=== PATIENT | male | born 1935 | race Caucasian/White ===

== ENCOUNTER 2022-05-31 21:20 | Inpatient (IN) ==
[2022-05-31] MEDS ORDERED: ASPIRIN CHEW 324 MG PO STA (21:27)
[2022-05-31] MEDS ORDERED: diphenhydrAMINE 50 MG/ML VIAL IV STA (21:34)
[2022-05-31] MEDS ORDERED: methylPREDNISolone 125 MG/2 ML VIAL IV STA (21:34)
[2022-05-31 21:57] LABS: Eosinophils # (auto) 0.11 K/uL (0-0.5); Eosinophils % (auto) 0.7 %; Hematocrit (blood only) 26.5 % (42-52); Hemoglobin 8.5 g/dL (14.0-18.0); Immature Granulocytes # (auto) 0.06 K/uL (0.00-0.02); Immature Granulocytes % (auto) 0.4 %; Lymphocytes # (auto) 0.94 K/uL (1.2-3.4); Lymphocytes % (auto) 6.2 %; Mean Corpuscular Hemoglobin 30.9 pg (25-34); Mean Corpuscular Hgb Conc 32.1 g/dL (32-36); Mean Corpuscular Volume 96.4 fL (80-100); Mean Platelet Volume 8.6 fL (7.4-10.4); Monocytes # (auto) 0.29 K/uL (0.11-0.59); Monocytes % (auto) 1.9 %; Neutrophils % (auto) 90.8 %; Nucleated RBC # (auto) 0.04 K/uL (0-0); Nucleated RBC % (auto) 0.3 %; Platelet Count 380 K/uL (130-400); RDW Coefficient of Variation 16.9 % (11.5-14.5); RDW Standard Deviation 56.5 fL (36.4-46.3); Red Blood Count 2.75 M/uL (4.7-6.1)
[2022-05-31 21:59] LABS: iSTAT Creatinine 1.5 mg/dl (0.6-1.3); iSTAT Hemoglobin 8.5 g/dl (14.0-18.0); iSTAT Ionized Calcium 1.05 mmol/l (1.12-1.32); iSTAT Potassium 4.4 mmol/L (3.3-5.0)
[2022-05-31 22:10] LABS: INR 1.1 (0.9-1.1); Partial Thromboplastin Time 27.7 Seconds (21.0-31.0); Prothrombin Time 11.4 Seconds (9.0-12.0)
[2022-05-31 22:24] LABS: Anion Gap 8 (3-11); BUN Creatinine Ratio 12.2 (10-20); Blood Urea Nitrogen 17 mg/dl (6-23); Carbon Dioxide 27 mmol/L (21-32); Chloride 101 mmol/L (98-107); Est GFR (African American) 53.6 ml/min; Est GFR (Non-African American) 46.2 ml/min; Glucose 131 mg/dl (70-99(Fasting)); Lipase 31 U/L (11-82); Potassium 4.3 mmol/L (3.5-5.1); Sodium 136 mmol/L (136-145)
[2022-05-31] MEDS ORDERED: OPTIRAY 320 125ml IV ONE (22:49)
[2022-05-31 23:02] LABS: Troponin I High Sensitivity 120.2 pg/ml (0-20)
[2022-05-31 23:22] LABS: Influenza A virus by PCR Negative (Neg); Influenza B virus by PCR Negative (Neg); RSV by PCR Negative (Neg)
[2022-05-31 23:24] LABS: SARS CoV2 RNA(COVID-19) InHosp POSITIVE (Negative)
[2022-05-31] MEDS ORDERED: SODIUM CHLORIDE 0.9% 500 ML IV SCH (23:45)
--- NOTE | 2022-05-31 23:53 | Emergency Department Note ---
History of Present Illness General Chief complaint: Chest Pain Stated complaint: open hrt surg fri, swelling and sob, some pain Time Seen by Provider: 05/31/22 21:27 Source: patient and family ( and daughter at bedside) History of Present Illness Provider complaint: Chest pain Onset (ago): day(s) 2 Location: chest Radiation: non-radiation Severity: mild Pain Consistency: + intermittent Maximum Pain Intensity: 4 Current Pain Intensity: 4 Quality: + aching Relieved By: + none Exacerbated By: + none Associated symptoms: + chest pain, + cough, + fever/chills, + malaise and + shortness of breath; no headaches or no nausea/vomiting 86-year-old male presents emergency department with family for chest pain. Family reports that the patient has been reporting some chest pain over the left side of his chest. He is also reporting some cough and shortness of breath. Patient's family reports that he has been increasingly fatigued. He reports muscle aches. Patient did have open heart surgery done on May [address] [facility]. Home Medications Medication Instructions Recorded Confirmed Type acetaminophen 325 mg tablet 650 mg PO Q4H PRN 05/31/22 05/31/22 History (Tylenol) amiodarone 200 mg tablet 200 mg PO DIRECTED 05/31/22 05/31/22 History aspirin 81 mg tablet,delayed 81 mg PO DAILY 05/31/22 05/31/22 History release atorvastatin 40 mg tablet 40 mg PO HS 05/31/22 05/31/22 History ferrous sulfate 325 mg (65 mg 325 mg PO DAILY 05/31/22 05/31/22 History iron) tablet furosemide 40 mg tablet (Lasix) 40 mg PO DAILY 05/31/22 05/31/22 History metoprolol succinate 50 mg 50 mg PO DAILY 05/31/22 05/31/22 History tablet,extended release 24 hr pantoprazole 40 mg tablet,delayed 40 mg PO DAILY 05/31/22 05/31/22 History release polyethylene glycol 3350 17 17 g PO DAILY PRN 05/31/22 05/31/22 History gram/dose oral powder (Miralax) potassium chloride 10 mEq 10 meq PO DAILY 05/31/22 05/31/22 History capsule,extended release sennosides 8.6 mg tablet (senna) 8.6 mg PO DAILY PRN 05/31/22 05/31/22 History terazosin 2 mg capsule 2 mg PO HS 05/31/22 05/31/22 History Allergies Allergy/AdvReac Type Severity Reaction Status Date / Time Iodinated Contrast Media Allergy Severe SHORT OF Verified 05/31/22 22:05 BREATH, FELT LIKE "ON FIRE". Past Med/Surg History Medical History Aortic stenosis CAD (coronary artery disease) HLD (hyperlipidemia) HTN (hypertension) No pertinent family history Surgical History Aortic valve replaced Hx of CABG Social History Smoking Status: Former smoker Tobacco Type: Cigarettes Feels Safe at Home: Yes Review of Systems A total of 10 systems reviewed and were otherwise negative Physical Exam Vital Signs Vital Signs - 24 hr 05/31/22 21:21 05/31/22 21:27 05/31/22 23:01 Temperature 37.7 C H Temperature Source Temporal Artery Scan Pulse Rate 82 Pulse Rate [Apical] 92 H Respiratory Rate 18 17 Respiratory Effort / Characteristics Non-Labored Spontaneous Labored Non-Labored Respiratory Depth Normal Normal Normal Respiratory Pattern Regular Blood Pressure 129/71 Blood Pressure [Left Arm] 134/66 Blood Pressure Mean 90 Blood Pressure Mean [Left Arm] 88 Blood Pressure Position Sitting Blood Pressure Position [Left Arm] Lying Pulse Oximetry 95 97 94 Oxygen Delivery Method Room Air Room Air Room Air Sepsis Recent Fever Within 48 Hours Yes Sepsis New/Unexplained Change in Mental Status N/A Sepsis Action Taken by Nursing No Action Required 06/01/22 00:00 Temperature Temperature Source Pulse Rate Pulse Rate [Apical] 73 Respiratory Rate 16 Respiratory Effort / Characteristics Non-Labored Respiratory Depth Normal Respiratory Pattern Regular Blood Pressure Blood Pressure [Left Arm] 116/67 Blood Pressure Mean Blood Pressure Mean [Left Arm] 83 Blood Pressure Position Blood Pressure Position [Left Arm] Lying Pulse Oximetry 96 Oxygen Delivery Method Room Air Sepsis Recent Fever Within 48 Hours Sepsis New/Unexplained Change in Mental Status Sepsis Action Taken by Nursing Physical Exam HENT: Exam performed. - Head: Normocephalic and atraumatic. - Right Ear: External ear normal. No mastoid tenderness. - Left Ear: External ear normal. No mastoid tenderness. - Mouth/Throat: The oropharynx is clear and moist. No trismus in the jaw. No dental abscesses or uvula swelling. No oropharyngeal exudate or tonsillar abscesses. EYES: Conjunctivae and EOM are normal. Pupils are equal, round, and reactive to light. Right eye exhibits no discharge. Left eye exhibits no discharge. No scl eral icterus. NECK: Normal range of motion. Neck supple. No JVD present. No spinous process tenderness present. No carotid bruit present. No rigidity. No tracheal deviation and normal range of motion present. No Brudzinski's sign and no Kernig's sign noted. CV: Normal rate, regular rhythm, normal heart sounds and intact distal pulses. There is no peripheral edema. Palpable radial pulses bue. PULM/CHEST: Rhonchi bilaterally. - Chest Wall: He exhibits no tenderness. Surgical incisions are clean and dry no surrounding erythema or discharge. ABD: The abdomen is soft. MUSC/SKEL: Normal range of motion. There is no peripheral edema, tenderness or deformity. NEURO: Motor and sensation grossly intact Course Course 2126: The patient was evaluated in room C2. A complete history and physical exam was performed Cardiac monitoring: An order was placed for continuous cardiac monitoring. The monitor shows a rate of 90 with sinus rhythm 0058: Vital signs stable. Labs show leukocytosis of 15.2. High-sensitivity tro ponin 120.2. CT angio of the chest is negative for PE or infiltrate. Patient is positive for COVID-19. Discussed the case with [facility] and CT surgery Dr. Miller [phone] she states that the patient's is too far out from his surgery for an elevated troponin at this. She states that the patient had a CABG with 1 diagonal branch and the main reason for the CT surgery was for his valve replacement. She states there is no need for transfer at this time and she recommends that the patient be admitted to this facility have an echo done in the morning and be evaluated by cardiology. Administered Medications Discontinued Medications Aspirin (Aspirin Chew 324 Mg) 324 mg PO NOW STA Stop: 05/31/22 21:28 Last Admin: 05/31/22 21:52 Dose: 324 mg Documented by: [id number] Diphenhydramine HCl (Diphenhydramine 50 Mg/Ml Vial) 25 mg IV NOW STA Stop: 05/31/22 21:35 Last Admin: 05/31/22 21:53 Dose: 25 mg Documented by: [id number] Sodium Chloride (Nss) 500 mls @ 125 mls/hr IV .Q4H IS[place] Stop: 06/30/22 23:44 Last Admin: 06/01/22 00:42 Dose: 125 mls/hr Documented by: [id number] Ioversol (Optiray 320 125ml) 116 ml IV ONCE ONE Stop: 05/31/22 22:50 Last Admin: 05/31/22 22:50 Dose: 116 ml Documented by: [id number] Methylprednisolone (Methylprednisolone 125 Mg/2 Ml Vial) 125 mg IV NOW STA Stop: 05/31/22 21:35 Last Admin: 05/31/22 21:53 Dose: 125 mg Documented by: [id number] Medical Decision Making Laboratory Data Result diagrams: 05/31/22 21:41 05/31/22 21:41 Lab Results 05/31/22 05/31/22 05/31/22 Range/Units 21:41 21:41 21:41 WBC 15.20 H (4.8-10.8) K/uL RBC 2.75 L (4.7-6.1) M/uL Hgb 8.5 L (14.0-18.0) g/dL POC Hgb (14.0-18.0) g/dl Hct 26.5 L (42-52) % POC Hct (42-52) % MCV 96.4 (80-100) fL MCH 30.9 (25-34) pg MCHC 32.1 (32-36) g/dL RDW Std Deviation 56.5 H (36.4-46.3) fL RDW Coeff of Michael 16.9 H (11.5-14.5) % Plt Count 380 (130-400) K/uL MPV 8.6 (7.4-10.4) fL Immature Gran % (Auto) 0.4 % Neut % (Auto) 90.8 % Lymph % (Auto) 6.2 % Burke % (Auto) 1.9 % Eos % (Auto) 0.7 % Baso % (Auto) 0.0 % Neut # (Auto) 13.80 H (1.4-6.5) K/uL Lymph # (Auto) 0.94 L (1.2-3.4) K/uL Burke # (Auto) 0.29 (0.11-0.59) K/uL Eos # (Auto) 0.11 (0-0.5) K/uL Baso # (Auto) 0.00 (0-0.2) K/uL Immature Gran # (Auto) 0.06 H (0.00-0.02) K/uL Absolute Nucleated RBC 0.04 H (0-0) K/uL Nucleated RBC % (auto) 0.3 % PT 11.4 (9.0-12.0) Seconds INR 1.1 (0.9-1.1) APTT 27.7 (21.0-31.0) Seconds PTT Ratio 1.0 POC Sodium (135-144) mmol/L Sodium 136 (136-145) mmol/L POC Potassium (3.3-5.0) mmol/L Potassium 4.3 (3.5-5.1) mmol/L POC Chloride (101-112) mmol/L Chloride 101 (98-107) mmol/L Carbon Dioxide 27 (21-32) mmol/L POC Total CO2 (24-31) mmol/L Anion Gap 8 (3-11) POC Anion Gap (16-25) mmol/L POC BUN (7-18) mg/dl BUN 17 (6-23) mg/dl Creatinine 1.39 (0.6-1.4) mg/dl POC Creatinine (0.6-1.3) mg/dl Est Cr Clr Drug Dosing Not Reportable Est GFR ( Amer) 53.6 ml/min Est GFR (Non-Af Amer) 46.2 ml/min BUN/Creatinine Ratio 12.2 (10-20) Glucose 131 H (70-99(Fasting)) mg/dl POC Glucose (other) (70-99) mg/dl Lactate (0.4-2.0) mmol/L Calcium 8.0 L (8.5-10.1) mg/dl POC Ioniz Calcium Carmen (1.12-1.32) mmol/l Troponin I High Sens 120.2 H* (0-20) pg/ml Lipase 31 (11-82) U/L SARS-CoV-2 (PCR) (Negative) Influenza Type A (PCR) (Neg) Influenza Type B (PCR) (Neg) RSV (RT-PCR) (Neg) 05/31/22 05/31/22 05/31/22 Range/Units 21:46 22:32 23:00 WBC (4.8-10.8) K/uL RBC (4.7-6.1) M/uL Hgb (14.0-18.0) g/dL POC Hgb 8.5 L (14.0-18.0) g/dl Hct (42-52) % POC Hct 25 L (42-52) % MCV (80-100) fL MCH (25-34) pg MCHC (32-36) g/dL RDW Std Deviation (36.4-46.3) fL RDW Coeff of Michael (11.5-14.5) % Plt Count (130-400) K/uL MPV (7.4-10.4) fL Immature Gran % (Auto) % Neut % (Auto) % Lymph % (Auto) % Burke % (Auto) % Eos % (Auto) % Baso % (Auto) % Neut # (Auto) (1.4-6.5) K/uL Lymph # (Auto) (1.2-3.4) K/uL Burke # (Auto) (0.11-0.59) K/uL Eos # (Auto) (0-0.5) K/uL Baso # (Auto) (0-0.2) K/uL Immature Gran # (Auto) (0.00-0.02) K/uL Absolute Nucleated RBC (0-0) K/uL Nucleated RBC % (auto) % PT (9.0-12.0) Seconds INR (0.9-1.1) APTT (21.0-31.0) Seconds PTT Ratio POC Sodium 135 (135-144) mmol/L Sodium (136-145) mmol/L POC Potassium 4.4 (3.3-5.0) mmol/L Potassium (3.5-5.1) mmol/L POC Chloride 99 L (101-112) mmol/L Chloride (98-107) mmol/L Carbon Dioxide (21-32) mmol/L POC Total CO2 25 (24-31) mmol/L Anion Gap (3-11) POC Anion Gap 16.0 (16-25) mmol/L POC BUN 15 (7-18) mg/dl BUN (6-23) mg/dl Creatinine (0.6-1.4) mg/dl POC Creatinine 1.5 H (0.6-1.3) mg/dl Est Cr Clr Drug Dosing Est GFR ( Amer) ml/min Est GFR (Non-Af Amer) ml/min BUN/Creatinine Ratio (10-20) Glucose (70-99(Fasting)) mg/dl POC Glucose (other) 133 H (70-99) mg/dl Lactate 0.7 (0.4-2.0) mmol/L Calcium (8.5-10.1) mg/dl POC Ioniz Calcium Carmen 1.05 L (1.12-1.32) mmol/l Troponin I High Sens (0-20) pg/ml Lipase (11-82) U/L SARS-CoV-2 (PCR) POSITIVE A* (Negative) Influenza Type A (PCR) Negative (Neg) Influenza Type B (PCR) Negative (Neg) RSV (RT-PCR) Negative (Neg) Imaging Data Radiologist's Impression: PreliminaryFindingsOnly See Final Report For Complete Findings CTACHEST: No evidence of pulmonaryemboli. Trace bilateral pleural effusions. Mild areas of subsegmental atelectasis in the lung bases. Moderatelylarge hiatus hernia. Radiologist: Matias Acevedo MD Study ready at 23:09 and initial results transmitted at 23:46 ECG Data Indication: + chest pain Rate (beats per minute): 83 Rhythm: + normal sinus ECG Intervals/blocks: + First degree AV block, + Normal QRS and + Normal QT-c ECG ST segments: + Normal ST segments and + T-wave inversions (I and aVL) Comparison ECG Date: no prior available MDM Narrative Vital signs stable. Labs show leukocytosis of 15.2. High-sensitivity troponin 120.2. CT angio of the chest is negative for PE or infiltrate. Patient is positive for COVID-19. Discussed the case with [facility] and CT surgery Dr. Miller [phone] she states that the patient's is too far out from his surgery for an elevated troponin at this. She states that the patient had a CABG with 1 diagonal branch and the main reason for the CT surgery was for his valve replacement. She states there is no need for transfer at this time and she recommends that the patient be admitted to this facility have an echo done in the morning and be evaluated by cardiology. Impression & Plan COVID-19, Elevated troponin Discharge Plan Visit Data Chief Complaint: Chest Pain Stated Complaint: open hrt surg fri, swelling and sob, some pain ED Provider: Indra Harvey Discharge Problem: COVID-19, Elevated troponin Patient Disposition: Admitted As Inpatient Forms Stand Alone Forms: My [facility] Prescriptions Prescriptions: No Action furosemide [Lasix] 40 mg Tablet 40 mg PO DAILY RF: 0 atorvastatin 40 mg Tablet 40 mg PO HS RF: 0 sennosides [senna] 8.6 mg Tablet 8.6 mg PO DAILY PRN (Reason: Constipation) RF: 0 potassium chloride 10 mEq Capsule, Extended Release 10 meq PO DAILY RF: 0 acetaminophen [Tylenol] 325 mg Tablet 650 mg PO Q4H PRN (Reason: Pain) RF: 0 amiodarone 200 mg Tablet 200 mg PO DIRECTED RF: 0 metoprolol succinate 50 mg Tablet Extended Release 24 Hr 50 mg PO DAILY RF: 0 aspirin 81 mg Tablet,Delayed Release (Dr/Ec) 81 mg PO DAILY RF: 0 terazosin 2 mg Capsule 2 mg PO HS RF: 0 pantoprazole 40 mg Tablet,Delayed Release (Dr/Ec) 40 mg PO DAILY RF: 0 ferrous sulfate 325 mg (65 mg iron) Tablet 325 mg PO DAILY RF: 0 polyethylene glycol 3350 [Miralax] 17 gram/dose Powder 17 g PO DAILY PRN (Reason: Constipation) RF: 0 Referrals Referrals: Jake Joseph [Primary Care Provider] -
--- NOTE | 2022-06-01 01:10 | History & Physical Report ---
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 Miller for patient's surgeon, Dr Stoddard, contact #[phone]) recommendation per ER provider.. Cardiology consult Re: CHF Supportive measures for patient's COVID-19 illness. IV PPI for UGIB Appropriate to hold aspirin for now until hemoglobin stable Anemia work-up, transfuse PRBC if hemoglobin less than 8 and or for symptomatic anemia GI consult Re: UGI B Retrieve records from [facility] and patient's PCP Check hemoglobin A1c DVT prophylaxis. SCDs Re: GI bleed Full code Text document was generated using [employer] voice recognition software. It may contain grammatical or spelling errors. Kindly contact undersigned for clarification of any documentation item in question. History of Present Illness Chief Complaint: Chest pain, shortness of breath Primary Care Provider: Dr. Tyrell Munroe of [facility] History obtained from patient and records. Medical history significant for CHF, severe status post TAVR (03/2021), PAF currently off Coumadin, prosthetic valve dysfunction status post recent TAVR explant surgery (04/2022, [facility]), CAD status post CABG, hypertension, hyperlipidemia, chronic anemia (unknown baseline), GERD, past tobacco abuse. 2 weeks ago, patient underwent elective TAVR explant surgery and CABG for paravalvular leak following TAVR surgery for severe (2020) at [place], [place]. Patient discharged home after 1 week. Noise retention, weight gain, bilateral leg swelling the last week as per patient. Chronic dark stools without abdominal pain. Few days ago, patient noted cough symptoms productive of clear sputum, achiness, increased fatigue and left-sided chest pain. Patient not sure about recent COVID-19 contacts given recent confinement. Has completed COVID-19 vaccination. Patient compliant with home medications. Amiodarone recently added to patient's home regimen. Patient currently off Coumadin for reasons unclear to patient. Patient brought to ER for evaluation. Medical History as above Surgical History : TAVR x2, CABG, knee surgeries Family History : No heart disease, no DM Personal/Social history : Past tobacco abuse, no EtOH intake, retired machinist wood Allergies Allergy/AdvReac Type Severity Reaction Status Date / Time Iodinated Contrast Media Allergy Severe SHORT OF Verified 05/31/22 22:05 BREATH, FELT LIKE "ON FIRE". Home Medications Medication Instructions Recorded Confirmed Type acetaminophen 325 mg tablet 650 mg PO Q4H PRN 05/31/22 05/31/22 History (Tylenol) amiodarone 200 mg tablet 200 mg PO DIRECTED 05/31/22 05/31/22 History aspirin 81 mg tablet,delayed 81 mg PO DAILY 05/31/22 05/31/22 History release atorvastatin 40 mg tablet 40 mg PO HS 05/31/22 05/31/22 History ferrous sulfate 325 mg (65 mg 325 mg PO DAILY 05/31/22 05/31/22 History iron) tablet furosemide 40 mg tablet (Lasix) 40 mg PO DAILY 05/31/22 05/31/22 History metoprolol succinate 50 mg 50 mg PO DAILY 05/31/22 05/31/22 History tablet,extended release 24 hr pantoprazole 40 mg tablet,delayed 40 mg PO DAILY 05/31/22 05/31/22 History release polyethylene glycol 3350 17 17 g PO DAILY PRN 05/31/22 05/31/22 History gram/dose oral powder (Miralax) potassium chloride 10 mEq 10 meq PO DAILY 05/31/22 05/31/22 History capsule,extended release sennosides 8.6 mg tablet (senna) 8.6 mg PO DAILY PRN 05/31/22 05/31/22 History terazosin 2 mg capsule 2 mg PO HS 05/31/22 05/31/22 History Past Med/Surg History Medical History Aortic stenosis CAD (coronary artery disease) HLD (hyperlipidemia) HTN (hypertension) No pertinent family history Surgical History Aortic valve replaced Hx of CABG Social History Smoking Status: Former smoker Tobacco Type: Cigarettes Hx Alcohol Use: Yes Hx Substance Use: No Preferred Language: Jamaican 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 Beliefs That Will Affect Care: None Current Living Situation: Spouse Feels Safe at Home: Yes Safety Concerns: Feels Safe At This Time Review of Systems Review of Systems: As per HPI, all other systems reviewed and negative Physical Exam Physical Exam: GENERAL: Comfortable, pleasant, obese, no respiratory distress SKIN: Pallor,, warm HEENT: Pale palpebral conjunctivae, no ptosis, dry buccal mucosa NECK : Supple, short neck, no tenderness CHEST : coaptated sternal surgical incision, decreased breath sounds, occasional expiratory wheezes, minimal central chest wall tenderness HEART : RRR, systolic murmur over second right intercostal space and sternal border ABDOMEN: Some distention, nontender RECTAL : Intact sphincter, dark stool (FOBT positive ) EXTREMITIES : Minimal LE swelling, no LE tenderness, no other conspicuous deformities noted NEUROLOGIC : Coherent, no facial asymmetry, slightly hard of hearing, no other gross focality Results & Data Results & Data ([facility]) Vital Signs (Past 12 Hours) Vital Signs Temp Pulse Pulse Resp BP BP Pulse Ox 06/01/22 00:00 73 16 116/67 96 05/31/22 23:01 92 H 17 134/66 94 05/31/22 21:27 97 05/31/22 21:21 37.7 C H 82 18 129/71 95 Laboratory Results Laboratory Results WBC 15.20 K/uL (4.8-10.8) H 05/31/22 21:41 RBC 2.75 M/uL (4.7-6.1) L 05/31/22 21:41 Hgb 8.5 g/dL (14.0-18.0) L 05/31/22 21:41 POC Hgb 8.5 g/dl (14.0-18.0) L 05/31/22 21:46 Hct 26.5 % (42-52) L 05/31/22 21:41 POC Hct 25 % (42-52) L 05/31/22 21:46 MCV 96.4 fL (80-100) 05/31/22 21:41 MCH 30.9 pg (25-34) 05/31/22 21:41 MCHC 32.1 g/dL (32-36) 05/31/22 21:41 RDW Std Deviation 56.5 fL (36.4-46.3) H 05/31/22 21:41 RDW Coeff of Michael 16.9 % (11.5-14.5) H 05/31/22 21:41 Plt Count 380 K/uL (130-400) 05/31/22 21:41 MPV 8.6 fL (7.4-10.4) 05/31/22 21:41 Immature Gran % (Auto) 0.4 % 05/31/22 21:41 Neut % (Auto) 90.8 % 05/31/22 21:41 Lymph % (Auto) 6.2 % 05/31/22 21:41 Ness % (Auto) 1.9 % 05/31/22 21:41 Eos % (Auto) 0.7 % 05/31/22 21:41 Baso % (Auto) 0.0 % 05/31/22 21:41 Neut # (Auto) 13.80 K/uL (1.4-6.5) H 05/31/22 21:41 Lymph # (Auto) 0.94 K/uL (1.2-3.4) L 05/31/22 21:41 Ness # (Auto) 0.29 K/uL (0.11-0.59) 05/31/22 21:41 Eos # (Auto) 0.11 K/uL (0-0.5) 05/31/22 21:41 Baso # (Auto) 0.00 K/uL (0-0.2) 05/31/22 21:41 Immature Gran # (Auto) 0.06 K/uL (0.00-0.02) H 05/31/22 21:41 Absolute Nucleated RBC 0.04 K/uL (0-0) H 05/31/22 21:41 Nucleated RBC % (auto) 0.3 % 05/31/22 21:41 PT 11.4 Seconds (9.0-12.0) 05/31/22 21:41 INR 1.1 (0.9-1.1) 05/31/22 21:41 APTT 27.7 Seconds (21.0-31.0) 05/31/22 21:41 PTT Ratio 1.0 05/31/22 21:41 POC Sodium 135 mmol/L (135-144) 05/31/22 21:46 Sodium 136 mmol/L (136-145) 05/31/22 21:41 POC Potassium 4.4 mmol/L (3.3-5.0) 05/31/22 21:46 Potassium 4.3 mmol/L (3.5-5.1) 05/31/22 21:41 POC Chloride 99 mmol/L (101-112) L 05/31/22 21:46 Chloride 101 mmol/L (98-107) 05/31/22 21:41 Carbon Dioxide 27 mmol/L (21-32) 05/31/22 21:41 POC Total CO2 25 mmol/L (24-31) 05/31/22 21:46 Anion Gap 8 (3-11) 05/31/22 21:41 POC Anion Gap 16.0 mmol/L (16-25) 05/31/22 21:46 POC BUN 15 mg/dl (7-18) 05/31/22 21:46 BUN 17 mg/dl (6-23) 05/31/22 21:41 Creatinine 1.39 mg/dl (0.6-1.4) 05/31/22 21:41 POC Creatinine 1.5 mg/dl (0.6-1.3) H 05/31/22 21:46 Est Cr Clr Drug Dosing Not Reportable 05/31/22 21:41 Est GFR ( Amer) 53.6 ml/min 05/31/22 21:41 Est GFR (Non-Af Amer) 46.2 ml/min 05/31/22 21:41 BUN/Creatinine Ratio 12.2 (10-20) 05/31/22 21:41 Glucose 131 mg/dl (70-99(Fasting)) H 05/31/22 21:41 POC Glucose (other) 133 mg/dl (70-99) H 05/31/22 21:46 Lactate 0.7 mmol/L (0.4-2.0) 05/31/22 23:00 Calcium 8.0 mg/dl (8.5-10.1) L 05/31/22 21:41 POC Ioniz Calcium Carmen 1.05 mmol/l (1.12-1.32) L 05/31/22 21:46 Troponin I High Sens 120.2 pg/ml (0-20) H* 05/31/22 21:41 Lipase 31 U/L (11-82) 05/31/22 21:41 SARS-CoV-2 (PCR) POSITIVE (Negative) A* 05/31/22 22:32 Influenza Type A (PCR) Negative (Neg) 05/31/22 22:32 Influenza Type B (PCR) Negative (Neg) 05/31/22 22:32 RSV (RT-PCR) Negative (Neg) 05/31/22 22:[address] chest initial read: No evidence of pulmonaryemboli. Trace bilateral pleural effusions. Mild areas of subsegmental atelectasis in the lung bases. Moderatelylarge hiatus hernia. EKG as per my interpretation:Rate 85, NSR, LAD, LAFB, 1 AVB, T wave abnormalities lateral leads
[2022-06-01] MEDS ORDERED: SODIUM CHLORIDE 0.9% 500 ML IV ONE (01:11)
[2022-06-01 01:56] LABS: Magnesium 2.2 mg/dl (1.7-2.4)
[2022-06-01 02:14] LABS: Troponin I High Sensitivity 98.7 pg/ml (0-20)
[2022-06-01] MEDS ORDERED: PANTOprazole 80 MG in DEXTROSE 5% 100 ML IV ONE (02:15)
[2022-06-01] MEDS ORDERED: FUROSEMIDE INJ 20 MG/2 ML VIAL IV ONE ×2 (02:19)
[2022-06-01] MEDS ORDERED: LEVALBUTEROL TARTRATE 15 GM HFA.AER.AD INH STA (02:23)
[2022-06-01 02:47] LABS: Albumin Level 3.1 gm/dl (3.4-5.0)
[2022-06-01] MEDS ORDERED: ACETAMINOPHEN 325 MG TAB PO PRN (04:11)
[2022-06-01] MEDS ORDERED: LEVALBUTEROL TARTRATE 15 GM HFA.AER.AD INH PRN (04:11)
[2022-06-01] MEDS ORDERED: PROMETHAZINE HCL 12.5 MG in SODIUM CHLORIDE 0.9% 50 ML IV PRN (04:11)
[2022-06-01] MEDS ORDERED: traMADol HCL 50 MG TABLET PO PRN (04:11)
[2022-06-01] MEDS ORDERED: NITROGLYCERIN SL 0.4 MG/TAB TAB SL PRN (04:11)
[2022-06-01 06:41] LABS: Estimated Average Glucose 114 mg/dl; Hemoglobin A1C 5.6 % (4.5-5.6)
[2022-06-01] MEDS ORDERED: PANTOprazole 40 MG in DEXTROSE 5% 100 ML IV SCH (07:15)
[2022-06-01 07:39] LABS: Basophils # (auto) 0.01 K/uL (0-0.2); Basophils % (auto) 0.1 %; Hematocrit (blood only) 25.6 % (42-52); Hemoglobin 8.3 g/dL (14.0-18.0); Immature Granulocytes # (auto) 0.07 K/uL (0.00-0.02); Immature Granulocytes % (auto) 0.5 %; Lymphocytes # (auto) 0.37 K/uL (1.2-3.4); Lymphocytes % (auto) 2.9 %; Mean Corpuscular Hemoglobin 30.9 pg (25-34); Mean Corpuscular Hgb Conc 32.4 g/dL (32-36); Mean Corpuscular Volume 95.2 fL (80-100); Mean Platelet Volume 8.7 fL (7.4-10.4); Monocytes # (auto) 0.05 K/uL (0.11-0.59); Monocytes % (auto) 0.4 %; Neutrophils # (auto) 12.41 K/uL (1.4-6.5); Neutrophils % (auto) 96.1 %; Platelet Count 375 K/uL (130-400); RDW Coefficient of Variation 16.7 % (11.5-14.5); RDW Standard Deviation 56.1 fL (36.4-46.3); Red Blood Count 2.69 M/uL (4.7-6.1); White Blood Count 12.91 K/uL (4.8-10.8)
--- NOTE | 2022-06-01 07:39 | XRay Report ---
SINGLE VIEW CHEST CLINICAL HISTORY: Atypical chest pain. FINDINGS: An AP, portable, upright chest radiograph is obtained. No prior studies are available for c omparison at the time of dictation. The examination is degraded by portable technique and patient rot ation. The patient is status post midline sternotomy. The heart is enlarged noting atherosclerotic ca lcification of the thoracic aorta. There is mild pulmonary vascular congestion. There are small pleur al effusions with bibasilar scarring/atelectasis. No pneumothorax is seen. The skeletal structures ar e osteopenic. The bony thorax is grossly intact. Surgical clips project over the right upper chest wa ll. IMPRESSION: 1. Cardiomegaly with mild pulmonary vascular congestion. 2. Small pleural effusions with bibasilar scarring/atelectasis. ACT 112: Negative or not required by law. Electronically signed by: Giovani Jerez M.D. 06/01/2022 7:38 AM
[2022-06-01 07:45] LABS: Reticulocyte % 5.3 % (0.5-2.0); Reticulocytes # 0.14 10^6/uL (0.02-0.10)
--- NOTE | 2022-06-01 08:14 | CT Scan Report ---
CT angio chest PE protocol CLINICAL HISTORY: Chest Pain, eval for PE TECHNIQUE: Multidetector row helical CT of the chest was performed with angiographic protocol. Riley l and sagittal reformations were obtained. Coronal and sagittal MIPS were obtained from the axial nura a set and were submitted for review. Automated dose lowering techniques and/or adjustment according to patient size were utilized for this exam. CT DOSE: 674.78 mGy.cm Comparison: None available at the time of this dictation. FINDINGS: Lungs and pleura: Atelectasis versus scarring is seen in the dependent portions of the lungs. Trace b ilateral pleural effusions are noted. Bronchial wall thickening is noted. Heart and pericardium: Heart size is normal. No pericardial effusion. Vessels: No evidence of pulmonary embolism. Mediastinum and rick: Stranding and a tiny focus of anterior mediastinal gas are seen. Chest wall and lower neck: Unremarkable. Abdomen: A moderate hiatal hernia is seen. Bones: Degenerative changes in the thoracic spine. Median sternotomy is noted. IMPRESSION: 1. No evidence of pulmonary embolism. 2. Postprocedural changes in this patient status post recent TAVR explant surgery with anterior medi astinal stranding and a tiny amount of gas. 3. Trace bilateral pleural effusions with atelectasis noted. ACT 112: Negative or not required by law. Electronically signed by: Gatito Liang M.D. 06/01/2022 8:13 AM
[2022-06-01 08:17] LABS: BUN Creatinine Ratio 13.1 (10-20); Calcium 7.6 mg/dl (8.5-10.1); Creatinine Clr Calc Pharmacy 51.9 ml/min; Est GFR (African American) 58.1 ml/min; Est GFR (Non-African American) 50.1 ml/min; Potassium 3.9 mmol/L (3.5-5.1)
[2022-06-01 08:28] LABS: Ferritin 184.4 ng/ml (8-388)
[2022-06-01 08:32] LABS: Folate (Folic Acid) 10.68 ng/ml (>5.38)
[2022-06-01] MEDS: POTASSIUM CHLORIDE CRTAB 20 MEQ TABCR PO SCH (08:57)
[2022-06-01] MEDS: FERROUS SULFATE 325 MG TAB PO SCH (08:57)
[2022-06-01] MEDS: METOPROLOL SUCC 25MG EXT REL TAB PO SCH (08:57)
[2022-06-01] MEDS: AMIODARONE 200 MG TAB PO SCH (08:57)
[2022-06-01] MEDS ORDERED: METOPROLOL SUCC 50MG EXT REL TAB PO SCH (09:00)
--- NOTE | 2022-06-01 09:55 | Cardiology Consultation ---
Date of Consultation June 01, 2022 Assessment & Plan (1) Acute on chronic heart failure with preserved ejection fraction (HFpEF): (2) COVID-19: (3) Anemia: (4) Dark stools: (5) Aortic stenosis: (6) CAD (coronary artery disease): 86 year old male with complex history as noted, presents with shortness of breath having been recently discharged from [facility], 05/28/2022, status post explantation of TAVR prosthesis x2, surgical aortic valve replacement with Art-Bernal bioprosthesis, CABG x1, SVG to diagonal, left atrial appendage clip. (1) Acute on chronic heart failure with preserved ejection fraction (HFpEF): -Patient received 40 mg of IV furosemide at 3:11 AM. -Proceed with an additional dose now, 06/01/2022, 1300 Monitor renal function Update echocardiogram, stable postoperative findings on recent study prior to discharge from [facility] performed 05/26/2022. (2) COVID-19: Patient with mild fever 37.7 on presentation. At the time of my conversation with him, his pulse oximetry was down to 86% on room air with a an adequate waveform, however he had been 98% on room air earlier this morning. We will reassess need for supplementary oxygen, supportive care as necessary. Patient without any viral symptoms at present. (3) Anemia: Patient with history of paroxysmal atrial fibrillation. In sinus rhythm. Recent surgical left atrial appendage clipping, and was discharged off of anti coagulation with noted history of gastrointestinal bleeding in 2020. Hemoglobin of 8.3 today, consistent with recent postoperative status. We will however keep an eye out for concern of GI blood loss. (4) Dark stools: Agree with Protonix pending further observation. (5) Aortic stenosis: Treated with balloon valvuloplasty, then TAVR in 2020, developed embolization of initial TAVR prosthesis to the distal ascending aorta, second TAVR prosthesis complicated by perivalvular leak, prompting surgical AVR April,. (6) CAD (coronary artery disease): Aspirin on hold due to anemia, concern of heme positive stool. Continue metoprolol succinate, atorvastatin. (7) paroxysmal atrial fibrillation -Continue metoprolol, amiodarone for rhythm control. -Off of anticoagulation due to history of gastrointestinal bleeding, left atrial appendage surgical clip performed. History of Present Illness Attending Physician: Philipp Peraza MD History of Present Illness Mo Armijo is an 86 year old male seen in cardiology consultation per the request of Dr Escobar for the evaluation of shortness of breath. Patient with longstanding history of lower extremity edema. He is not able to tell me if his edema at present is any worse than his usual baseline. He describes symptoms of orthopnea with lying flat. He has tested positive for SARS-CoV-2, however CT angiogram reveals no definite pneumonia. Patient denies sore throat, nasal congestion, or subjective fever although he says his told him that he had a temperature at home. His temperature on arrival to the emergency room last evening was 37.7. Afebrile in the meantime. Patient follows with [facility], Dr Mary Leon ( . ) and with [facility] (Stewardess Supervisor Dr Dumont, surgeon Dr Stoddard) and is assessed for the first time at this institution.Patient presented to the emergency department at [facility] [place] overnight with complaints of progressive shortness of breath, weight gain, and swelling of the bilateral legs. Past Medical / Cardiac History: - Obtained per review of available records from [facility] int patient's outpatient Epic electronic record. 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 04/15/2021, [facility], underwent balloon aortic valvuloplasty followed by transcatheter aortic valve replacement 06/24/2021. The procedure was complicated by embolization of the 29 mm EvolutPro valve to the distal ascending aorta during post procedure dilatation and could not be retrieved. A second 29 mm Evolut Pro valve was implanted in the aortic position with development of significant perivalvular aortic regurgitation. 09/19/2021, echocardiogram, [place], revealed LVEF 54%, moderate (23+) aortic regurgitation due to perivalvular leak 05/19/22, [place], [place], Right axillary cannulation, TAVR explant x 2 (Ascending aorta, as well as aortic root), AVR (25 Art-Bernal), CABG x 1: SVG-Diag, left atrial appendage (Clip). -Discharged from [facility] 05/28/22. -Per discharge summary, postoperative course complicated by atrial fibrillation, acute renal insufficiency, rash -Discharge medications included amiodarone 200 mg twice daily x5 days, then to be reduced to 1 tablet by mouth daily Furosemide 40 mg daily for 5-day course Prior to hospital treatment with Coumadin discontinued at discharge. Cardiac catheterization , [facility] 05/17/22: Right femoral artery approach LM: The LM has mild diffuse disease. LAD: The 1st diagonal LAD is narrowed 60 % - focal disease. Additional Comment: The LAD is a large caliber vessel that gives rise to a large caliber, high, bifurcating first diagonal branch. There is a moderate- significant stenosis at the bifurcation of the lateral 1st diagonal branch(60-70%). Moderate caliber diagonal branch LCX: The Circumflex has diffuse moderate diffuse disease. Additional Comment: The left circumflex is a large caliber vessel that gives rise to a moderate caliber first obtuse marginal branch. There is a moderate lesion in the proximal vessel which is negative by iFR (0.93). There is a focal moderate stenosis in the prox portion of the first obtuse marginal branch which is negative via iFR (1.0). RAMUS: The Ramus is normal. RCA: The RCA has mild diffuse disease. Allergies Allergy/AdvReac Type Severity Reaction Status Date / Time Iodinated Contrast Media Allergy Severe SHORT OF Verified 05/31/22 22:05 BREATH, FELT LIKE "ON FIRE". Home Medications Medication Instructions Recorded Confirmed Type acetaminophen 325 mg tablet 650 mg PO Q4H PRN 05/31/22 05/31/22 History (Tylenol) amiodarone 200 mg tablet 200 mg PO DIRECTED 05/31/22 05/31/22 History aspirin 81 mg tablet,delayed 81 mg PO DAILY 05/31/22 05/31/22 History release atorvastatin 40 mg tablet 40 mg PO HS 05/31/22 05/31/22 History ferrous sulfate 325 mg (65 mg 325 mg PO DAILY 05/31/22 05/31/22 History iron) tablet furosemide 40 mg tablet (Lasix) 40 mg PO DAILY 05/31/22 05/31/22 History metoprolol succinate 50 mg 50 mg PO DAILY 05/31/22 05/31/22 History tablet,extended release 24 hr pantoprazole 40 mg tablet,delayed 40 mg PO DAILY 05/31/22 05/31/22 History release polyethylene glycol 3350 17 17 g PO DAILY PRN 05/31/22 05/31/22 History gram/dose oral powder (Miralax) potassium chloride 10 mEq 10 meq PO DAILY 05/31/22 05/31/22 History capsule,extended release sennosides 8.6 mg tablet (senna) 8.6 mg PO DAILY PRN 05/31/22 05/31/22 History terazosin 2 mg capsule 2 mg PO HS 05/31/22 05/31/22 History Patient History Medical History Aortic stenosis CAD (coronary artery disease) HLD (hyperlipidemia) HTN (hypertension) No pertinent family history Surgical History Aortic valve replaced Hx of CABG Social History Smoking Status: Former smoker Tobacco Type: Cigarettes Hx Alcohol Use: Yes Hx Substance Use: No Preferred Language: Spanish Medical Pathology Teacher Required: No Beliefs That Will Affect Care: None Current Living Situation: Spouse Feels Safe at Home: Yes Safety Concerns: Feels Safe At This Time Review of Systems Review of Systems: All systems reviewed & are unremarkable except as noted in HPI & below Physical Exam Constitutional: + obese; no acute distress Respiratory: normal respiratory effort, lungs clear to auscultation Cardiovascular: Rate/Rhythm: regular rate and regular rhythm Heart Sounds: normal S1 and normal S2; no murmur Vessels: no JVD Extremities: + edema (2+ lower extremity edema) Chest (Breasts): Additional Comments: Well-healed midline sternotomy incision, incision from right axillary access also healing well without drainage. Chest tube incisions clean dry and intact without drainage Gastrointestinal (Abdomen): normal bowel sounds, soft, nontender, no hepatosplenomegaly Neurologic: PERRL, EOMI, accommodation nl, no face palsy, no dysarthria Results & Data ([facility]) Vital Signs (Past 12 Hours) Vital Signs Temp Pulse Pulse Resp BP BP BP 06/01/22 08:00 06/01/22 07:32 36.8 C 74 18 127/62 06/01/22 07:00 70 06/01/22 05:29 76 15 06/01/22 04:35 71 06/01/22 04:33 36.7 C 76 16 134/80 06/01/22 03:00 87 16 127/71 06/01/22 02:30 89 14 122/66 06/01/22 02:00 74 15 127/65 06/01/22 01:00 89 19 125/76 06/01/22 00:00 74 73 16 119/67 116/67 05/31/22 23:02 92 H 22 134/66 05/31/22 23:01 92 H 17 134/66 05/31/22 22:00 82 18 150/68 H Pulse Ox Pulse Ox 06/01/22 08:00 98 06/01/22 07:32 97 06/01/22 07:00 06/01/22 05:29 98 06/01/22 04:35 06/01/22 04:33 98 06/01/22 03:00 97 06/01/22 02:30 98 06/01/22 02:00 96 06/01/22 01:00 95 06/01/22 00:00 95 05/31/22 23:02 92 05/31/22 23:01 94 05/31/22 22:00 94 Laboratory Results Cardiac Enzymes 05/31/22 06/01/22 Range/Units 21:41 01:20 Troponin I High Sens 120.2 H* 98.7 H* D (0-20) pg/ml Coagulation 05/31/22 Range/Units 21:41 PT 11.4 (9.0-12.0) Seconds APTT 27.7 (21.0-31.0) Seconds CBC 05/31/22 06/01/22 Range/Units 21:41 06:32 WBC 15.20 H 12.91 H (4.8-10.8) K/uL RBC 2.75 L 2.69 L (4.7-6.1) M/uL Hgb 8.5 L 8.3 L (14.0-18.0) g/dL Hct 26.5 L 25.6 L (42-52) % Plt Count 380 375 (130-400) K/uL Neut # (Auto) 13.80 H 12.41 H (1.4-6.5) K/uL Lymph # (Auto) 0.94 L 0.37 L (1.2-3.4) K/uL [place] # (Auto) 0.29 0.05 L (0.11-0.59) K/uL Eos # (Auto) 0.11 0.00 (0-0.5) K/uL Baso # (Auto) 0.00 0.01 (0-0.2) K/uL Comprehensive Metabolic Panel 05/31/22 06/01/22 06/01/22 Range/Units 21:41 01:20 06:32 Sodium 136 136 (136-145) mmol/L Potassium 4.3 3.9 (3.5-5.1) mmol/L Chloride 101 101 (98-107) mmol/L Carbon Dioxide 27 27 (21-32) mmol/L BUN 17 17 (6-23) mg/dl Creatinine 1.39 1.30 (0.6-1.4) mg/dl Glucose 131 H 177 H (70-99(Fasting)) mg/dl Calcium 8.0 L 7.6 L (8.5-10.1) mg/dl Albumin 3.1 L (3.4-5.0) gm/dl Intake and Output 05/31/22 06/01/22 06/01/22 22:59 06:59 14:59 Intake Total 455.333 / 455.333 Output Total 1000 / 1000 500 / 500 Balance -544.667 / -544.667 -500 / -500 Intake: IV 455.333 / 455.333 PANTOprazole 80 mg In Dextrose 120 / 120 5% 100 ml @ 400 mls/hr IV NOW ONE Rx#:[id number] Sodium Chloride 0.9% 500 ml @ 335.333 / 335.333 60 mls/hr IV .[id number] ONE Rx#: [id number] Output: Urine 1000 / 1000 500 / 500 Other: Weight 111.7 kg 107.5 kg 107.5 kg Weight Measurement Method Built in [facility] Patient Weight 06/02/22 06:59 Weight 107.5 kg Diagnostic Findings EKG performed 05/31/2022 2132 hrs. revealed sinus rhythm with first-degree AV block, NC interval 232 ms, T wave inversion noted in the high lateral leads I and aVL. Summary of echocardiogram performed at [facility], 05/26/2022: LVEF 64%+/- 5% The right ventricular chamber size and systolic function is normal Significant mitral annular calcification with mean transmitral gradient 9 mmHg, 6 mmHg with a heart rate of 90 bpm Art-Bernal bioprosthesis in the aortic valve position with peak gradient 13 mmHg, mean gradient 6 mmHg, dimensionless index 0.71 Small pericardial effusion noted. Chest x-ray 05/31/2022, enlarged cardiac silhouette, small bilateral pleural effusions, mild pulmonary vascular congestion CT angiogram 05/31/2022: Summary of radiology report, no pulmonary embolism, postoperative changes consistent with recent surgical history, trace bilateral pleural effusions, left atrial appendage clip in place. Trace circumferential pericardial effusion.
[2022-06-01] MEDS: PANTOprazole 40 MG in SYRINGE 0 ML IV SCH ×2 (09:56→21:15)
--- NOTE | 2022-06-01 11:06 | Gastrointestinal Consultation ---
Date of Consultation June 01, 2022 Assessment & Plan (1) Anemia: (2) Dark stools: (3) COVID-19: (4) Aortic stenosis: This is an 86-year-old male with complicated cardiac history as above, recent TAVR explant surgery at [facility], admitted after presenting with symptoms of decompensated heart failure and COVID +. We are consulted for concern over ? UGIB. Pt has chronic anemia (though baseline unknown) and chronic dark stools on iron. Overnight pt has remained HD stable, without documented GI output, and HGB has remained stable without elevated BUN, suggesting against acute GIB. He had bidirectional endoscopy in Aug 2021 at [facility] as above. - Agree with IV PPI - Trend H&H - Transfuse PRN - Would defer endoscopy at this facility. At this point if concern for GIB would recommend transfer to tertiary center such a [facility] given his complexity and recent history - GI will sign off, please call with questions Thank you for allowing us to participate in the care of this patient. Please call with any acute changes, questions or concerns. Please see addendum below with additional recommendation from my supervising physician. Supervising Physician Co-Signing Physician Notes Due to isolation precautions the patient was not physically seen. I did review the patient's outpatient and inpatient medical record. It appears that he had a recent surgical procedure performed at the [facility] and was found to be COVID-positive. It appears that he has been admitted to the hospital for evaluation of progressive heart failure symptoms and a question of Gastroin testinal bleeding. Given the complexity of the patient's medical history I wonder if he be best served by referral to his cardiac center as the presenting symptoms are likely related to his recent surgical procedure. I did call and discussed the recommendations with the inpatient hospitalist at our center who is in agreement with referral. History of Present Illness Reason for Consultation: ugib Requesting Physician: Dr. 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 Now admitted w/ ches pain, weight gain, leg swelling, and found to have decompensated heart failure, elevated troponin, and COVID +. We are consulted for dark stools. Chart reviewed including nursing notes, ER and H&P notes. It appears he has chronic dark stools on oral iron. Had reported + FOBT in the ER. Has had no documented stools overnight. He has a chronic anemia however baseline is unk nown. HGB 8.3 (was 8.5), HCT 25, BUN normal at 17. VSS. Aug 2021 had endoscopies at [facility] as below: EGD showed angiodysplasia tx w/ APC and gastritis in the stomach, and colonoscopy showed diverticulosis, numerous polyps in the colon, and internal hemorrhoids EGD 09/22/21 for anemia at [facility]: The examined duodenum was normal. An 8 cm hiatal hernia was present. A single large angioectasia with no bleeding was found in the gastric antrum. Coagulation for hemostasis using argon plasma at 0.8 liters/minute and 20 ocasio was successful. Localized mild inflammation characterized by erythema and friability was found on the lesser curvature of the gastric body. Biopsies were taken with a cold forceps for Helicobacter pylori testing. Coagulation for hemostasis using argon plasma at 0.8 liters/minute and 20 ocasio was successful. The Z-line was irregular. The examined esophagus was normal. Impression: - Normal examined duodenum. - 8 cm hiatal hernia. - A single non-bleeding angioectasia in the stomach. Treated with argon plasma coagulation (APC). - Acute gastritis. Biopsied. Treated with argon plasma coagulation (APC). - Z-line irregular. - Normal esophagus Colonoscopy 09/22/21 at [facility] for anemia: - Three 3 to 5 mm polyps in the ascending colon, removed with a cold snare. Resected and retrieved. - Two 8 to 12 mm polyps in the transverse colon, removed with a cold snare. Resected and retrieved. Clip (MR conditional) was placed. - Three 4 to 10 mm polyps in the sigmoid colon, removed with a cold snare. Resected and retrieved. - Non-bleeding internal hemorrhoids. - Diverticulosis in the entire examined colon Allergies Allergy/AdvReac Type Severity Reaction Status Date / Time Iodinated Contrast Media Allergy Severe SHORT OF Verified 05/31/22 22:05 BREATH, FELT LIKE "ON FIRE". Home Medications Medication Instructions Recorded Confirmed Type acetaminophen 325 mg tablet 650 mg PO Q4H PRN 05/31/22 05/31/22 History (Tylenol) amiodarone 200 mg tablet 200 mg PO DIRECTED 05/31/22 05/31/22 History aspirin 81 mg tablet,delayed 81 mg PO DAILY 05/31/22 05/31/22 History release atorvastatin 40 mg tablet 40 mg PO HS 05/31/22 05/31/22 History ferrous sulfate 325 mg (65 mg 325 mg PO DAILY 05/31/22 05/31/22 History iron) tablet furosemide 40 mg tablet (Lasix) 40 mg PO DAILY 05/31/22 05/31/22 History metoprolol succinate 50 mg 50 mg PO DAILY 05/31/22 05/31/22 History tablet,extended release 24 hr pantoprazole 40 mg tablet,delayed 40 mg PO DAILY 05/31/22 05/31/22 History release polyethylene glycol 3350 17 17 g PO DAILY PRN 05/31/22 05/31/22 History gram/dose oral powder (Miralax) potassium chloride 10 mEq 10 meq PO DAILY 05/31/22 05/31/22 History capsule,extended release sennosides 8.6 mg tablet (senna) 8.6 mg PO DAILY PRN 05/31/22 05/31/22 History terazosin 2 mg capsule 2 mg PO HS 05/31/22 05/31/22 History Patient History Medical History Aortic stenosis CAD (coronary artery disease) HLD (hyperlipidemia) HTN (hypertension) No pertinent family history Surgical History Aortic valve replaced Hx of CABG Social History Smoking Status: Former smoker Tobacco Type: Cigarettes Hx Alcohol Use: Yes Hx Substance Use: No Preferred Language: Chinese [employer] Custodian Required: No Beliefs That Will Affect Care: None Current Living Situation: Spouse Feels Safe at Home: Yes Safety Concerns: Feels Safe At This Time Results & Data ([facility]) Vital Signs (Past 12 Hours) Vital Signs Temp Pulse Pulse Resp BP BP BP 06/01/22 08:00 06/01/22 07:32 36.8 C 74 18 127/62 06/01/22 07:00 70 06/01/22 05:29 76 15 06/01/22 04:35 71 06/01/22 04:33 36.7 C 76 16 134/80 06/01/22 03:00 87 16 127/71 06/01/22 02:30 89 14 122/66 06/01/22 02:00 74 15 127/65 06/01/22 01:00 89 19 125/76 06/01/22 00:00 74 73 16 119/67 116/67 05/31/22 23:02 92 H 22 134/66 05/31/22 23:01 92 H 17 134/66 Pulse Ox Pulse Ox 06/01/22 08:00 98 06/01/22 07:32 97 06/01/22 07:00 06/01/22 05:29 98 06/01/22 04:35 06/01/22 04:33 98 06/01/22 03:00 97 06/01/22 02:30 98 06/01/22 02:00 96 06/01/22 01:00 95 06/01/22 00:00 95 05/31/22 23:02 92 05/31/22 23:01 94 Laboratory Results 06/01/22 06/01/22 06/01/22 Range/Units 06:32 06:32 06:32 WBC (4.8-10.8) K/uL RBC (4.7-6.1) M/uL Hgb (14.0-18.0) g/dL POC Hgb (14.0-18.0) g/dl Hct (42-52) % POC Hct (42-52) % MCV (80-100) fL MCH (25-34) pg MCHC (32-36) g/dL RDW Std Deviation (36.4-46.3) fL RDW Coeff of Michael (11.5-14.5) % Plt Count (130-400) K/uL MPV (7.4-10.4) fL Immature Gran % (Auto) % Neut % (Auto) % Lymph % (Auto) % Vilas % (Auto) % Eos % (Auto) % Baso % (Auto) % Reticulocyte % (Auto) 5.3 H (0.5-2.0) % Neut # (Auto) (1.4-6.5) K/uL Lymph # (Auto) (1.2-3.4) K/uL Vilas # (Auto) (0.11-0.59) K/uL Eos # (Auto) (0-0.5) K/uL Baso # (Auto) (0-0.2) K/uL Reticulocyte # 0.14 H (0.02-0.10) 10^6/uL Immature Gran # (Auto) (0.00-0.02) K/uL Absolute Nucleated RBC (0-0) K/uL Nucleated RBC % (auto) % PT (9.0-12.0) Seconds INR (0.9-1.1) APTT (21.0-31.0) Seconds PTT Ratio POC Sodium (135-144) mmol/L Sodium 136 (136-145) mmol/L POC Potassium (3.3-5.0) mmol/L Potassium 3.9 (3.5-5.1) mmol/L POC Chloride (101-112) mmol/L Chloride 101 (98-107) mmol/L Carbon Dioxide 27 (21-32) mmol/L POC Total CO2 (24-31) mmol/L Anion Gap 8 (3-11) POC Anion Gap (16-25) mmol/L POC BUN (7-18) mg/dl BUN 17 (6-23) mg/dl Creatinine 1.30 (0.6-1.4) mg/dl POC Creatinine (0.6-1.3) mg/dl Est Cr Clr Drug Dosing 51.9 Est GFR ( Amer) 58.1 ml/min Est GFR (Non-Af Amer) 50.1 ml/min BUN/Creatinine Ratio 13.1 (10-20) Glucose 177 H (70-99(Fasting)) mg/dl POC Glucose (other) (70-99) mg/dl Estimat Average Glucose mg/dl Hemoglobin A1c (4.5-5.6) % Lactate (0.4-2.0) mmol/L Calcium 7.6 L (8.5-10.1) mg/dl POC Ioniz Calcium Carmen (1.12-1.32) mmol/l Magnesium (1.7-2.4) mg/dl Iron 15 L (35-175) mcg/dl Transferrin 172 L (200-360) mg/dl Ferritin 184.4 (8-388) ng/ml Troponin I High Sens (0-20) pg/ml Albumin (3.4-5.0) gm/dl Lipase (11-82) U/L Vitamin B12 323 (180-914) pg/ml Folate 10.68 (>5.38) ng/ml Procalcitonin (0-0.5) ng/ml TSH (0.300-4.500) uIu/ml SARS-CoV-2 (PCR) (Negative) Influenza Type A (PCR) (Neg) Influenza Type B (PCR) (Neg) RSV (RT-PCR) (Neg) Blood Type Antibody Screen 06/01/22 06/01/22 06/01/22 Range/Units 06:32 06:32 01:20 WBC 12.91 H (4.8-10.8) K/uL RBC 2.69 L (4.7-6.1) M/uL Hgb 8.3 L (14.0-18.0) g/dL POC Hgb (14.0-18.0) g/dl Hct 25.6 L (42-52) % POC Hct (42-52) % MCV 95.2 (80-100) fL MCH 30.9 (25-34) pg MCHC 32.4 (32-36) g/dL RDW Std Deviation 56.1 H (36.4-46.3) fL RDW Coeff of Michael 16.7 H (11.5-14.5) % Plt Count 375 (130-400) K/uL MPV 8.7 (7.4-10.4) fL Immature Gran % (Auto) 0.5 % Neut % (Auto) 96.1 % Lymph % (Auto) 2.9 % Vilas % (Auto) 0.4 % Eos % (Auto) 0.0 % Baso % (Auto) 0.1 % Reticulocyte % (Auto) (0.5-2.0) % Neut # (Auto) 12.41 H (1.4-6.5) K/uL Lymph # (Auto) 0.37 L (1.2-3.4) K/uL Vilas # (Auto) 0.05 L (0.11-0.59) K/uL Eos # (Auto) 0.00 (0-0.5) K/uL Baso # (Auto) 0.01 (0-0.2) K/uL Reticulocyte # (0.02-0.10) 10^6/uL Immature Gran # (Auto) 0.07 H (0.00-0.02) K/uL Absolute Nucleated RBC (0-0) K/uL Nucleated RBC % (auto) % PT (9.0-12.0) Seconds INR (0.9-1.1) APTT (21.0-31.0) Seconds PTT Ratio POC Sodium (135-144) mmol/L Sodium (136-145) mmol/L POC Potassium (3.3-5.0) mmol/L Potassium (3.5-5.1) mmol/L POC Chloride (101-112) mmol/L Chloride (98-107) mmol/L Carbon Dioxide (21-32) mmol/L POC Total CO2 (24-31) mmol/L Anion Gap (3-11) POC Anion Gap (16-25) mmol/L POC BUN (7-18) mg/dl BUN (6-23) mg/dl Creatinine (0.6-1.4) mg/dl POC Creatinine (0.6-1.3) mg/dl Est Cr Clr Drug Dosing Est GFR ( Amer) ml/min Est GFR (Non-Af Amer) ml/min BUN/Creatinine Ratio (10-20) Glucose (70-99(Fasting)) mg/dl POC Glucose (other) (70-99) mg/dl Estimat Average Glucose mg/dl Hemoglobin A1c (4.5-5.6) % Lactate (0.4-2.0) mmol/L Calcium (8.5-10.1) mg/dl POC Ioniz Calcium Carmen (1.12-1.32) mmol/l Magnesium (1.7-2.4) mg/dl Iron (35-175) mcg/dl Transferrin (200-360) mg/dl Ferritin (8-388) ng/ml Troponin I High Sens (0-20) pg/ml Albumin (3.4-5.0) gm/dl Lipase (11-82) U/L Vitamin B12 (180-914) pg/ml Folate (>5.38) ng/ml Procalcitonin (0-0.5) ng/ml TSH 1.010 (0.300-4.500) uIu/ml SARS-CoV-2 (PCR) (Negative) Influenza Type A (PCR) (Neg) Influenza Type B (PCR) (Neg) RSV (RT-PCR) (Neg) Blood Type A Positive Antibody Screen NEGATIVE 06/01/22 06/01/22 05/31/22 Range/Units 01:20 01:20 23:00 WBC (4.8-10.8) K/uL RBC (4.7-6.1) M/uL Hgb (14.0-18.0) g/dL POC Hgb (14.0-18.0) g/dl Hct (42-52) % POC Hct (42-52) % MCV (80-100) fL MCH (25-34) pg MCHC (32-36) g/dL RDW Std Deviation (36.4-46.3) fL RDW Coeff of Michael (11.5-14.5) % Plt Count (130-400) K/uL MPV (7.4-10.4) fL Immature Gran % (Auto) % Neut % (Auto) % Lymph % (Auto) % Vilas % (Auto) % Eos % (Auto) % Baso % (Auto) % Reticulocyte % (Auto) (0.5-2.0) % Neut # (Auto) (1.4-6.5) K/uL Lymph # (Auto) (1.2-3.4) K/uL Vilas # (Auto) (0.11-0.59) K/uL Eos # (Auto) (0-0.5) K/uL Baso # (Auto) (0-0.2) K/uL Reticulocyte # (0.02-0.10) 10^6/uL Immature Gran # (Auto) (0.00-0.02) K/uL Absolute Nucleated RBC (0-0) K/uL Nucleated RBC % (auto) % PT (9.0-12.0) Seconds INR (0.9-1.1) APTT (21.0-31.0) Seconds PTT Ratio POC Sodium (135-144) mmol/L Sodium (136-145) mmol/L POC Potassium (3.3-5.0) mmol/L Potassium (3.5-5.1) mmol/L POC Chloride (101-112) mmol/L Chloride (98-107) mmol/L Carbon Dioxide (21-32) mmol/L POC Total CO2 (24-31) mmol/L Anion Gap (3-11) POC Anion Gap (16-25) mmol/L POC BUN (7-18) mg/dl BUN (6-23) mg/dl Creatinine (0.6-1.4) mg/dl POC Creatinine (0.6-1.3) mg/dl Est Cr Clr Drug Dosing Est GFR ( Amer) ml/min Est GFR (Non-Af Amer) ml/min BUN/Creatinine Ratio (10-20) Glucose (70-99(Fasting)) mg/dl POC Glucose (other) (70-99) mg/dl Estimat Average Glucose mg/dl Hemoglobin A1c (4.5-5.6) % Lactate 0.7 (0.4-2.0) mmol/L Calcium (8.5-10.1) mg/dl POC Ioniz Calcium Carmen (1.12-1.32) mmol/l Magnesium 2.2 (1.7-2.4) mg/dl Iron (35-175) mcg/dl Transferrin (200-360) mg/dl Ferritin (8-388) ng/ml Troponin I High Sens 98.7 H* D (0-20) pg/ml Albumin 3.1 L (3.4-5.0) gm/dl Lipase (11-82) U/L Vitamin B12 (180-914) pg/ml Folate (>5.38) ng/ml Procalcitonin 0.08 (0-0.5) ng/ml TSH (0.300-4.500) uIu/ml SARS-CoV-2 (PCR) (Negative) Influenza Type A (PCR) (Neg) Influenza Type B (PCR) (Neg) RSV (RT-PCR) (Neg) Blood Type Antibody Screen 05/31/22 05/31/22 05/31/22 Range/Units 22:32 21:46 21:41 WBC (4.8-10.8) K/uL RBC (4.7-6.1) M/uL Hgb (14.0-18.0) g/dL POC Hgb 8.5 L (14.0-18.0) g/dl Hct (42-52) % POC Hct 25 L (42-52) % MCV (80-100) fL MCH (25-34) pg MCHC (32-36) g/dL RDW Std Deviation (36.4-46.3) fL RDW Coeff of Michael (11.5-14.5) % Plt Count (130-400) K/uL MPV (7.4-10.4) fL Immature Gran % (Auto) % Neut % (Auto) % Lymph % (Auto) % Vilas % (Auto) % Eos % (Auto) % Baso % (Auto) % Reticulocyte % (Auto) (0.5-2.0) % Neut # (Auto) (1.4-6.5) K/uL Lymph # (Auto) (1.2-3.4) K/uL Vilas # (Auto) (0.11-0.59) K/uL Eos # (Auto) (0-0.5) K/uL Baso # (Auto) (0-0.2) K/uL Reticulocyte # (0.02-0.10) 10^6/uL Immature Gran # (Auto) (0.00-0.02) K/uL Absolute Nucleated RBC (0-0) K/uL Nucleated RBC % (auto) % PT (9.0-12.0) Seconds INR (0.9-1.1) APTT (21.0-31.0) Seconds PTT Ratio POC Sodium 135 (135-144) mmol/L Sodium (136-145) mmol/L POC Potassium 4.4 (3.3-5.0) mmol/L Potassium (3.5-5.1) mmol/L POC Chloride 99 L (101-112) mmol/L Chloride (98-107) mmol/L Carbon Dioxide (21-32) mmol/L POC Total CO2 25 (24-31) mmol/L Anion Gap (3-11) POC Anion Gap 16.0 (16-25) mmol/L POC BUN 15 (7-18) mg/dl BUN (6-23) mg/dl Creatinine (0.6-1.4) mg/dl POC Creatinine 1.5 H (0.6-1.3) mg/dl Est Cr Clr Drug Dosing Est GFR ( Amer) ml/min Est GFR (Non-Af Amer) ml/min BUN/Creatinine Ratio (10-20) Glucose (70-99(Fasting)) mg/dl POC Glucose (other) 133 H (70-99) mg/dl Estimat Average Glucose 114 mg/dl Hemoglobin A1c 5.6 (4.5-5.6) % Lactate (0.4-2.0) mmol/L Calcium (8.5-10.1) mg/dl POC Ioniz Calcium Carmen 1.05 L (1.12-1.32) mmol/l Magnesium (1.7-2.4) mg/dl Iron (35-175) mcg/dl Transferrin (200-360) mg/dl Ferritin (8-388) ng/ml Troponin I High Sens (0-20) pg/ml Albumin (3.4-5.0) gm/dl Lipase (11-82) U/L Vitamin B12 (180-914) pg/ml Folate (>5.38) ng/ml Procalcitonin (0-0.5) ng/ml TSH (0.300-4.500) uIu/ml SARS-CoV-2 (PCR) POSITIVE A* (Negative) Influenza Type A (PCR) Negative (Neg) Influenza Type B (PCR) Negative (Neg) RSV (RT-PCR) Negative (Neg) Blood Type Antibody Screen 05/31/22 05/31/22 05/31/22 Range/Units 21:41 21:41 21:41 WBC 15.20 H (4.8-10.8) K/uL RBC 2.75 L (4.7-6.1) M/uL Hgb 8.5 L (14.0-18.0) g/dL POC Hgb (14.0-18.0) g/dl Hct 26.5 L (42-52) % POC Hct (42-52) % MCV 96.4 (80-100) fL MCH 30.9 (25-34) pg MCHC 32.1 (32-36) g/dL RDW Std Deviation 56.5 H (36.4-46.3) fL RDW Coeff of Michael 16.9 H (11.5-14.5) % Plt Count 380 (130-400) K/uL MPV 8.6 (7.4-10.4) fL Immature Gran % (Auto) 0.4 % Neut % (Auto) 90.8 % Lymph % (Auto) 6.2 % Vilas % (Auto) 1.9 % Eos % (Auto) 0.7 % Baso % (Auto) 0.0 % Reticulocyte % (Auto) (0.5-2.0) % Neut # (Auto) 13.80 H (1.4-6.5) K/uL Lymph # (Auto) 0.94 L (1.2-3.4) K/uL Vilas # (Auto) 0.29 (0.11-0.59) K/uL Eos # (Auto) 0.11 (0-0.5) K/uL Baso # (Auto) 0.00 (0-0.2) K/uL Reticulocyte # (0.02-0.10) 10^6/uL Immature Gran # (Auto) 0.06 H (0.00-0.02) K/uL Absolute Nucleated RBC 0.04 H (0-0) K/uL Nucleated RBC % (auto) 0.3 % PT 11.4 (9.0-12.0) Seconds INR 1.1 (0.9-1.1) APTT 27.7 (21.0-31.0) Seconds PTT Ratio 1.0 POC Sodium (135-144) mmol/L Sodium 136 (136-145) mmol/L POC Potassium (3.3-5.0) mmol/L Potassium 4.3 (3.5-5.1) mmol/L POC Chloride (101-112) mmol/L Chloride 101 (98-107) mmol/L Carbon Dioxide 27 (21-32) mmol/L POC Total CO2 (24-31) mmol/L Anion Gap 8 (3-11) POC Anion Gap (16-25) mmol/L POC BUN (7-18) mg/dl BUN 17 (6-23) mg/dl Creatinine 1.39 (0.6-1.4) mg/dl POC Creatinine (0.6-1.3) mg/dl Est Cr Clr Drug Dosing Not Reportable Est GFR ( Amer) 53.6 ml/min Est GFR (Non-Af Amer) 46.2 ml/min BUN/Creatinine Ratio 12.2 (10-20) Glucose 131 H (70-99(Fasting)) mg/dl POC Glucose (other) (70-99) mg/dl Estimat Average Glucose mg/dl Hemoglobin A1c (4.5-5.6) % Lactate (0.4-2.0) mmol/L Calcium 8.0 L (8.5-10.1) mg/dl POC Ioniz Calcium Carmen (1.12-1.32) mmol/l Magnesium (1.7-2.4) mg/dl Iron (35-175) mcg/dl Transferrin (200-360) mg/dl Ferritin (8-388) ng/ml Troponin I High Sens 120.2 H* (0-20) pg/ml Albumin (3.4-5.0) gm/dl Lipase 31 (11-82) U/L Vitamin B12 (180-914) pg/ml Folate (>5.38) ng/ml Procalcitonin (0-0.5) ng/ml TSH (0.300-4.500) uIu/ml SARS-CoV-2 (PCR) (Negative) Influenza Type A (PCR) (Neg) Influenza Type B (PCR) (Neg) RSV (RT-PCR) (Neg) Blood Type Antibody Screen Diagnostic Findings CXR: 1. Cardiomegaly with mild pulmonary vascular congestion. 2. Small pleural effusions with bibasilar scarring/atelectasis. CTA chest: Lungs and pleura: Atelectasis versus scarring is seen in the dependent portions of the lungs. Trace bilateral pleural effusions are noted. Bronchial wall thickening is noted. Heart and pericardium: Heart size is normal. No pericardial effusion. Vessels: No evidence of pulmonary embolism. Mediastinum and rick: Stranding and a tiny focus of anterior mediastinal gas are seen. Chest wall and lower neck: Unremarkable. Abdomen: A moderate hiatal hernia is seen. Bones: Degenerative changes in the thoracic spine. Median sternotomy is noted. IMPRESSION: 1. No evidence of pulmonary embolism. 2. Postprocedural changes in this patient status post recent TAVR explant surgery with anterior mediastinal stranding and a tiny amount of gas. 3. Trace bilateral pleural effusions with atelectasis noted.
[2022-06-01] MEDS ORDERED: FUROSEMIDE 40 MG/4 ML VIAL IV ONE (13:00)
--- NOTE | 2022-06-01 14:14 | Hospitalist Progress Note ---
Date of Service June 01, 2022 Assessment & Plan (1) SOB (shortness of breath): Plan: Acute diastolic heart failure in setting of severe Demand ischemia in setting of COVID19 and acute decompensated CHF --CTA:No evidence of pulmonary embolism. Postprocedural changes in this patient status post recent TAVR explant surgery with anterior mediastinal stranding and a tiny amount of gas. Trace bilateral pleural effusions with atelectasis noted. --ECHO pending --Last ECHO:05/25/22: Left ventricle is normal in size. Left ventricle systolic function is normal. EF~ 65%. Right ventricle is normal in size. Right ventricle systolic function is normal. There is significant MAC with peak and mean transmitral gradient 9 and 6 mmHg respectively. 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 There is no aortic valve regurgitation. The peak gradient is 13 mmHg, the mean gradient is 6 mmHg and dimensionless valve index is 0.71. 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 CAD S/P CABG (04/2022) H/O S/P TAVR (2020) Continue current medications Monitor COVID-19 Infection Vaccinated State Saturating well on room air Procalcitonin 0.08 CRP pending CTA as above Given the comorbidities and possible risk for progression, will start on Remdesivir Patient agrees with starting Remdesivir If patient develops persistent, Hypoxia, will need Dexamethasone initiated Bacteremia: 1/2 blood Cx growing positive cocci in chains ECHO pending Will repeat Blood Cultures in AM Empirically started on Unasyn H/O paroxysmal atrial fibrillation Currently in sinus Had surgical left atrial appendage clip pain Continue amiodarone, Metoprolol Off anticoagulation due to history of GI bleed Hypertension BP stable Continue home meds Hyperlipidemia on statin Melena + FOBT H/O Iron deficiency anemia Aspirin held for now On IV Protonix Monitor H&H and transfuse as needed GI consulted No plan for endoscopy as per GI currently Anemia work up pending GERD on PPI Hyperglycemia Can note rule out DM II HbA1C: 5.6 : Unlikely inaccurate given Anemia/GI bleed Monitor BGs DVT Px: SCDs Re GI bleed Code Status Full code Admission and Anticipated Discharge Date Admission Date: June 01, 2022 Subjective Patient is seen and examined at bedside States having mild cough intermittently Denies any shortness of breath, dizziness, nausea, abdominal pain States having mild soreness at the site of surgery on the chest Offers no other complaints No recurrence of bleeding today Review of Systems Review of Systems: All systems reviewed & are unremarkable except as noted in Subjective Physical Exam Physical Exam: Physical Exam: Vitals signs as noted above General Appearance:Obese, no apparent distress Head: normocephalic, Atraumatic Eyes: normal inspection, EOMI Neck: supple, Trachea midline Respiratory/Chest: Decreased breath sounds, CTA, No accessory muscle use Cardiovascular: S1, S2, No murmur Abdomen/GI:Soft, Non tender, Bowel sounds present Extremities/Musculoskeletal:normal inspection, +2 Pedal edema Neurologic/Psych:AAOX3, grossly no focal neurological deficits Skin: normal color, warm, +Sternostomy Scar Results & Data Results & Data ([facility]) Vital Signs (Past 12 Hours) Vital Signs Temp Pulse Pulse Resp BP BP Pulse Ox 06/01/22 08:00 06/01/22 07:32 36.8 C 74 18 127/62 97 06/01/22 07:00 70 06/01/22 05:29 76 15 98 06/01/22 04:35 71 06/01/22 04:33 36.7 C 76 16 134/80 98 06/01/22 03:00 87 16 127/71 97 06/01/22 02:30 89 14 122/66 98 Pulse Ox 06/01/22 08:00 98 06/01/22 07:32 06/01/22 07:00 06/01/22 05:29 06/01/22 04:35 06/01/22 04:33 06/01/22 03:00 06/01/22 02:30 Laboratory Results Short CBC 05/31/22 06/01/22 Range/Units 21:41 06:32 WBC 15.20 H 12.91 H (4.8-10.8) K/uL Hgb 8.5 L 8.3 L (14.0-18.0) g/dL Hct 26.5 L 25.6 L (42-52) % Plt Count 380 375 (130-400) K/uL BMP 05/31/22 06/01/22 21:41 06:32 Sodium 136 136 Potassium 4.3 3.9 Chloride 101 101 Carbon Dioxide 27 27 BUN 17 17 Creatinine 1.39 1.30 Glucose 131 H 177 H Calcium 8.0 L 7.6 L Liver Function 06/01/22 Range/Units 01:20 Albumin 3.1 L (3.4-5.0) gm/dl
[2022-06-01 14:27] LABS: A calco-baum cmplx NotReported Not Detected (NotDetected); Bact fragilis Not Reported Not Detected (NotDetected); C auris Not Reported Not Detected (NotDetected); Calbicans Not Reported Not Detected (NotDetected); Candida glabrata Not Reported Not Detected (NotDetected); Candida krusei Not Reported Not Detected (NotDetected); Cneoformans/gatti Not Reported Not Detected (NotDetected); Cparapsilosis Not Reported Not Detected (NotDetected); Ctropicalis Not Reported Not Detected (NotDetected); E cloacae compx Not Reported Not Detected (NotDetected); Efaecalis Not Reported DETECTED (NotDetected); Efaecium Not Reported Not Detected (NotDetected); Enterobacterales Not Reported Not Detected (NotDetected); Escherichia coli Not Reported Not Detected (NotDetected); H influenzae Not Reported Not Detected (NotDetected); K aerogenes Not Reported Not Detected (NotDetected); Koxytoca Not Reported Not Detected (NotDetected); Kpneumoniae grp Not Reported Not Detected (NotDetected); Lmonocyt Not Reported Not Detected (NotDetected); N meningitidis Not Reported Not Detected (NotDetected); P aeruginosa Not Reported Not Detected (NotDetected); Proteus spp Not Reported Not Detected (NotDetected); Salmonella spp Not Reported Not Detected (NotDetected); Smarcescens Not Reported Not Detected (NotDetected); Staph lugdunensis Not Reported Not Detected (NotDetected); Staph spp. Not Reported Not Detected (NotDetected); Staphaureus Not Reported Not Detected (NotDetected); Staphepi Not Reported Not Detected (NotDetected); Stenmaltophilia Not Reported Not Detected (NotDetected); Strep agal(GrpB) Not Reported Not Detected (NotDetected); Strep pneum Not Reported Not Detected (NotDetected); Strep pyog (GrpA) Not Reported Not Detected (NotDetected); Strep spp Not Reported Not Detected (NotDetected); VanAB Resistant Gene VRE Not Detected (NotDetected)
[2022-06-01 14:34] LABS: Enterococcus faecalis DETECTED (NotDetected)
[2022-06-01] MEDS ORDERED: REMDESIVIR 200 MG in SODIUM CHLORIDE 0.9% 210 ML IV STA (14:43)
[2022-06-01] MEDS ORDERED: POLYETHYLENE (MIRALAX) 17 GM PACK PO PRN (15:20)
[2022-06-01] MEDS: AMPICILLIN/SULBACTAM SOD 3,000 MG in 0.9 % SODIUM CHLORIDE 100 ML IV SCH ×2 (18:29→21:15)
[2022-06-01 20:02] LABS: Hematocrit (blood only) 25.2 % (42-52); Hemoglobin 8.2 g/dL (14.0-18.0)
[2022-06-01] MEDS ORDERED: MELATONIN 3 MG TAB PO PRN (20:37)
[2022-06-01] MEDS: TERAZOSIN HCL 1 MG CAP PO SCH (21:14)
[2022-06-01] MEDS: ATORVASTATIN 40 MG TAB PO SCH (21:14)
[2022-06-02] MEDS: AMPICILLIN/SULBACTAM SOD 3,000 MG in 0.9 % SODIUM CHLORIDE 100 ML IV SCH ×4 (04:31→21:11)
--- NOTE | 2022-06-02 06:11 | Electrocardiogram Report ---
Test Reason : Blood Pressure : / mmHG Vent. Rate : 083 BPM Atrial Rate : 083 BPM P-R Int : 232 ms QRS Dur : 106 ms QT Int : 368 ms P-R-T Axes : -12 -29 114 degrees QTc Int : 432 ms Sinus rhythm with 1st degree A-V block T wave abnormality, consider lateral ischemia Abnormal ECG No previous ECGs available Confirmed by Josh Pelaez ([id number] on 06/02/2022 6:10:29 AM Referred By: REFERRED SELF Confirmed By:Josh Pelaez
[2022-06-02 07:24] LABS: Hematocrit (blood only) 25.2 % (42-52); Hemoglobin 8.1 g/dL (14.0-18.0); Mean Corpuscular Hemoglobin 30.6 pg (25-34); Mean Corpuscular Hgb Conc 32.1 g/dL (32-36); Mean Corpuscular Volume 95.1 fL (80-100); Mean Platelet Volume 8.4 fL (7.4-10.4); Platelet Count 367 K/uL (130-400); RDW Coefficient of Variation 16.7 % (11.5-14.5); RDW Standard Deviation 56.2 fL (36.4-46.3); Red Blood Count 2.65 M/uL (4.7-6.1)
[2022-06-02 07:41] LABS: Bilirubin Direct 0.1 mg/dl (0-0.2); Bilirubin,Total 0.6 mg/dl (0.2-1.0); C Reactive Protein 4.14 mg/dl (0-0.5); Calcium 7.4 mg/dl (8.5-10.1); Creatinine Clr Calc Pharmacy 52.8 ml/min; Est GFR (African American) 59.2 ml/min; Est GFR (Non-African American) 51.1 ml/min; Magnesium 2.3 mg/dl (1.7-2.4); Potassium 3.9 mmol/L (3.5-5.1); Total Protein 5.7 gm/dl (6.0-8.3)
[2022-06-02] MEDS: FERROUS SULFATE 325 MG TAB PO SCH (08:11)
[2022-06-02] MEDS: METOPROLOL SUCC 25MG EXT REL TAB PO SCH (08:12)
[2022-06-02] MEDS: AMIODARONE 200 MG TAB PO SCH (08:12)
[2022-06-02] MEDS: POTASSIUM CHLORIDE CRTAB 20 MEQ TABCR PO SCH (08:12)
[2022-06-02] MEDS: PANTOprazole 40 MG in SYRINGE 0 ML IV SCH ×2 (08:13→21:12)
[2022-06-02] MEDS ORDERED: FUROSEMIDE 40 MG/4 ML VIAL IV ONE ×2 (09:16→09:17)
--- NOTE | 2022-06-02 11:11 | Cardiology Progress Note ---
Date of Service June 02, 2022 Assessment & Plan (1) Acute on chronic heart failure with preserved ejection fraction (HFpEF): (2) COVID-19: (3) Anemia: (4) Dark stools: (5) Aortic stenosis: (6) CAD (coronary artery disease): Plan: 86 year old male with complex history as noted, presents with shortness of breath having been recently discharged from [facility], 05/28/2022, status post explantation of TAVR prosthesis x2, surgical aortic valve replacement with Art-Beranl bioprosthesis, CABG x1, SVG to diagonal, left atrial appendage clip. (1) Acute on chronic heart failure with preserved ejection fraction (HFpEF): -Echocardiogram performed 06/01/2022 revealed normal LVEF, grade 2 diastolic dysfunction, normal prosthetic aortic valve function. -Continue diuretic therapy, 40 mg IV twice daily at 7 AM, 1400. (2) COVID-19: Patient with mild fever 37.7 on presentation. No additional fever. Patient notes mild cough. Agree with remdesivir. Supplemental oxygen. (3) Anemia: Patient with history of paroxysmal atrial fibrillation. In sinus rhythm. Recent surgical left atrial appendage clipping, and was discharged off of anticoagulation with noted history of gastrointestinal bleeding in 2020. Hemoglobin of 8.1 06/02/2022, compared to 8.2 last evening. Patient has history of chronic anemia, notes dark stool. Iron deficiency noted. -Consider IV iron supplementation while here. -Would have low threshold with regards to reinitiating pharmacologic DVT prophylaxis given stasis, recent postoperative state, COVID-19. (4) Dark stools: Agree with Protonix pending further observation. (5) Aortic stenosis: Treated with balloon valvuloplasty, then TAVR in 2020, developed embolization of initial TAVR prosthesis to the distal ascending aorta, second TAVR prosthesis complicated by perivalvular leak, prompting surgical AVR April,. -Prosthetic valve function 06/01/2022 (6) CAD (coronary artery disease): Aspirin on hold due to anemia, concern of heme positive stool. Continue metoprolol succinate, atorvastatin. (7) paroxysmal atrial fibrillation -Continue metoprolol, amiodarone for rhythm control. -Off of anticoagulation due to history of gastrointestinal bleeding, left atrial appendage surgical clip performed. (8) Gram-positive chains on 1/2 blood culture 05/31/2022. Repeat cultures obtained. -Perhaps contaminant. Agree with empiric antibiotics pending further results. Admission and Anticipated Discharge Date Admission Date: June 01, 2022 Subjective Patient seen in cardiology follow-up of chief complaint of shortness of breath. He is in the bedside chair. Feeling well. Pulse oximetry most recently measured at 8:30 AM was 98% on 2 L nasal cannula. He remains on this level of supplemental oxygen. Function reveals sinus rhythm in the 70s. Lower extremity edema improved. Physical Exam Constitutional: + obese; no acute distress Respiratory: normal respiratory effort, lungs clear to auscultation Cardiovascular: Rate/Rhythm: regular rate and regular rhythm Heart Sounds: normal S1 and normal S2; no murmur Vessels: no JVD Extremities: + edema (1-2+ lower extremity edema) Gastrointestinal (Abdomen): normal bowel sounds, soft, nontender, no hepatosplenomegaly Neurologic: PERRL, EOMI, accommodation nl, no face palsy, no dysarthria Results & Data ([facility]) Vital Signs (Past 12 Hours) Vital Signs Temp Pulse Resp BP Pulse Ox Pulse Ox 06/02/22 08:30 98 06/02/22 07:49 36.9 C 76 18 117/70 99 06/02/22 03:00 37.0 C 76 18 131/57 L 97 Laboratory Results Cardiac Enzymes 06/02/22 Range/Units 07:11 AST 20 (13-39) U/L CBC 06/01/22 06/02/22 Range/Units 19:44 07:11 WBC 10.80 (4.8-10.8) K/uL RBC 2.65 L (4.7-6.1) M/uL Hgb 8.2 L 8.1 L (14.0-18.0) g/dL Hct 25.2 L 25.2 L (42-52) % Plt Count 367 (130-400) K/uL Comprehensive Metabolic Panel 06/02/22 Range/Units 07:11 Sodium 136 (136-145) mmol/L Potassium 3.9 (3.5-5.1) mmol/L Chloride 102 (98-107) mmol/L Carbon Dioxide 29 (21-32) mmol/L BUN 23 (6-23) mg/dl Creatinine 1.28 (0.6-1.4) mg/dl Glucose 126 H (70-99(Fasting)) mg/dl Calcium 7.4 L (8.5-10.1) mg/dl Direct Bilirubin 0.1 (0-0.2) mg/dl AST 20 (13-39) U/L ALT 28 (7-52) U/L Alkaline Phosphatase 77 (34-104) U/L Total Protein 5.7 L (6.0-8.3) gm/dl Albumin 3.0 L (3.4-5.0) gm/dl Intake and Output 06/01/22 06/02/22 06/02/22 22:59 06:59 14:59 Intake Total 586 / 814 228 / 814 Output Total 250 / 1800 450 / 1800 Balance 336 / -986 -222 / -986 Intake: IV 466 / 574 108 / 574 Ampicillin/Sulbactam Sod 3,000 216 / 324 108 / 324 mg In 0.9 % Sodium Chloride 100 ml @ 200 mls/hr IV Q6H [place] Rx# :[id number] Remdesivir 200 mg In Sodium 250 / 250 Chloride 0.9% 210 ml @ 125 mls/ hr IV ONE ST[facility] Rx#:[id number] Oral 120 / 240 120 / 240 Output: Urine 250 / 1800 450 / 1800 Other: Weight 107.9 kg Weight Measurement Method Built in [facility]
[2022-06-02] MEDS: REMDESIVIR 100 MG in SODIUM CHLORIDE 0.9% 230 ML IV SCH (11:44)
[2022-06-02] MEDS: FUROSEMIDE 40 MG/4 ML VIAL IV SCH (13:58)
[2022-06-02] MEDS ORDERED: LEVALBUTEROL TARTRATE 15 GM HFA.AER.AD INH PRN (14:00)
--- NOTE | 2022-06-02 17:05 | Hospitalist Progress Note ---
Date of Service June 02, 2022 Assessment & Plan (1) SOB (shortness of breath): Plan: PER DR. MOSELEY'S NOTES WITH ADDENDUM: Acute diastolic heart failure in setting of severe Demand ischemia in setting of COVID19 and acute decompensated CHF --CTA:No evidence of pulmonary embolism. Postprocedural changes in this patient status post recent TAVR explant surgery with anterior mediastinal stranding and a tiny amount of gas. Trace bilateral pleural effusions with atelectasis noted. --ECHO pending --Last ECHO:05/25/22: Left ventricle is normal in size. Left ventricle systolic function is normal. EF~ 65%. Right ventricle is normal in size. Right mary beth tricle systolic function is normal. There is significant MAC with peak and mean transmitral gradient 9 and 6 mmHg respectively. 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 There is no aortic valve regurgitation. The peak gradient is 13 mmHg, the mean gradient is 6 mmHg and dimensionless valve index is 0.71. -- Troponin trending down --Continue IV Lasix as per cardiology Appreciate cardiology input Monitor volume status, renal function Continue metoprolol, Lipitor Aspirin on hold due to concern for GI bleed 06/02 on Lasix IV BID Recent TAVR explant surgery at the [facility] for prosthetic valve dysfunction CAD S/P CABG (04/2022) H/O S/P TAVR (2020) Continue current medications Monitor COVID-19 Infection Vaccinated State Saturating well on room air Procalcitonin 0.08 CRP pending CTA as above Given the comorbidities and possible risk for progression, will start on Remdesivir Patient agrees with starting Remdesivir If patient develops persistent, Hypoxia, will need Dexamethasone initiated 06/02 symptoms improving as per patient will check O2 sats on room air, if <93%, will initiate Decadron LFTs, Renal function OK continue Remdesivir IV repeat CXR tomorrow Bacteremia: 1/2 blood Cx growing positive cocci in chains- Enterococci- sensitivities pending repeat BC: pending ECHO: noted continue Unasyn IV H/O paroxysmal atrial fibrillation Currently in sinus Had surgical left atrial appendage clip pain Continue amiodarone, Metoprolol Off anticoagulation due to history of GI bleed Hypertension BP stable Continue home meds Hyperlipidemia on statin Melena + FOBT H/O Iron deficiency anemia Aspirin held for now On IV Protonix Monitor H&H and transfuse as needed GI consulted No plan for endoscopy as per GI currently Iron 15 will give IV and PO Iron Hg remains at 8 no melena today continue Protonix IV 40mg BID GERD on PPI Hyperglycemia Can note rule out DM II HbA1C: 5.6 : Unlikely inaccurate given Anemia/GI bleed Monitor BGs DVT Px: SCDs Re GI bleed Code Status Full code Admission and Anticipated Discharge Date Admission Date: June 01, 2022 Subjective ff up for CHF exacerbation, COVID 19 infection etc seen resting in chair comfortable on 2 L NC states he feels better today less cough, breathing improving no fever/chills no abdominal pain ,nausea/vomiting no other symptoms Review of Systems Review of Systems: all noted and negative except for above Physical Exam Physical Exam: General- oriented x 3, not in distress, speaks in sentences with no effort or accessory muscle use Eyes- anicteric Neck- no JVD Lungs- mild wheeze at the bases no crackles good air entry BL Heart- normal rate, regular rhythm; no murmurs Abdomen- normal bowel sounds, nondistended, soft, nontender Extremities- mild lower leg edema, no calf tenderness Neuro- alert, oriented x 3; no gross focal neurologic deficits Skin- warm & dry Results & Data Results & Data ([facility]) Vital Signs (Past 12 Hours) Vital Signs Temp Pulse Pulse Resp BP Pulse Ox Pulse Ox 06/02/22 15:21 72 06/02/22 08:30 98 06/02/22 07:49 36.9 C 76 18 117/70 99 all noted and reviewed including below
[2022-06-02] MEDS: CALCIUM CARBONATE 1250MG TAB PO SCH (17:24)
[2022-06-02] MEDS ORDERED: IRON SUCROSE 150 MG in SODIUM CHLORIDE 0.9% 250 ML IV ONE (20:00)
[2022-06-02] MEDS: ATORVASTATIN 40 MG TAB PO SCH (21:12)
[2022-06-02] MEDS: TERAZOSIN HCL 1 MG CAP PO SCH (21:12)
[2022-06-03] MEDS: AMPICILLIN/SULBACTAM SOD 3,000 MG in 0.9 % SODIUM CHLORIDE 100 ML IV SCH ×4 (05:00→21:03)
[2022-06-03] MEDS: FUROSEMIDE 40 MG/4 ML VIAL IV SCH ×2 (06:15→13:43)
[2022-06-03 07:06] LABS: Hematocrit (blood only) 25.8 % (40.1-51.0); Hemoglobin 8.4 g/dl (14.0-18.0); Mean Corpuscular Hemoglobin 30.7 pg (25.0-34.0); Mean Corpuscular Hgb Conc 32.6 g/dL (32.0-36.0); Mean Corpuscular Volume 94.2 fL (80.0-100.0); Mean Platelet Volume 8.8 fL (9.4-12.4); Platelet Count 338 K/uL (130-400); RDW Standard Deviation 54.3 fL (36.4-46.3); Red Blood Count 2.74 M/uL (4.63-6.08); White Blood Count 8.72 K/ul (4.8-10.8)
[2022-06-03 07:16] LABS: Albumin Level 3.1 gm/dl (3.4-5.0); BUN Creatinine Ratio 20.3 (10-20); Bilirubin Direct 0.1 mg/dl (0-0.2); Bilirubin,Total 0.6 mg/dl (0.2-1.0); Calcium 7.4 mg/dl (8.5-10.1); Creatinine Clr Calc Pharmacy 54.1 ml/min; Est GFR (African American) 62.1 ml/min; Est GFR (Non-African American) 53.6 ml/min; Potassium 3.7 mmol/L (3.5-5.1); Total Protein 5.8 gm/dl (6.0-8.3)
[2022-06-03] MEDS: FERROUS SULFATE 325 MG TAB PO SCH (07:59)
[2022-06-03] MEDS: METOPROLOL SUCC 25MG EXT REL TAB PO SCH (07:59)
[2022-06-03] MEDS: AMIODARONE 200 MG TAB PO SCH (07:59)
[2022-06-03] MEDS: CALCIUM CARBONATE 1250MG TAB PO SCH ×2 (08:00→16:13)
[2022-06-03] MEDS: POTASSIUM CHLORIDE CRTAB 20 MEQ TABCR PO SCH (08:00)
--- NOTE | 2022-06-03 09:13 | XRay Report ---
XR chest 1V portable CLINICAL HISTORY: follow up COMPARISON STUDY: Chest radiograph and chest CT May 31, 2022. FINDINGS: Median sternotomy wires and prosthetic aortic valve are noted. There are right axillary ro gical clips. Cardiomegaly is unchanged. No evidence for pulmonary edema. No pneumothorax or pleural e ffusion is present. Mild left basilar opacity is unchanged. A hiatal hernia is better depicted on blanca or CT. Severe osteoarthritis of the left glenohumeral joint is incidentally noted. IMPRESSION: 1. Cardiomegaly. No evidence for pulmonary edema. 2. Left basilar opacity which favors atelectasis. ACT 112: Negative or not required by law. Electronically signed by: Les Moreno M.D. 06/03/2022 9:12 AM
[2022-06-03] MEDS: PANTOprazole 40 MG in SYRINGE 0 ML IV SCH ×2 (09:28→20:36)
--- NOTE | 2022-06-03 11:34 | Cardiology Progress Note ---
Date of Service June 03, 2022 Assessment & Plan (1) Acute on chronic heart failure with preserved ejection fraction (HFpEF): (2) COVID-19: (3) Anemia: (4) Dark stools: (5) Aortic stenosis: (6) CAD (coronary artery disease): Plan: 86 year old male with complex history as noted, presents with shortness of breath having been recently discharged from [facility], 05/28/2022, status post explantation of TAVR prosthesis x2, surgical aortic valve replacement with Art-Bernal bioprosthesis, CABG x1, SVG to diagonal, left atrial appendage clip. (1) Acute on chronic heart failure with preserved ejection fraction (HFpEF): -Echocardiogram performed 06/01/2022 revealed normal LVEF, grade 2 diastolic dysfunction, normal prosthetic aortic valve function. -Fluid balance -2.2 L in the last 24 hours. -Continue furosemide 40 mg twice daily, 7 AM, 1400. Continue potassium supplementation. (2) COVID-19: Patient with mild fever 37.7 on presentation. No additional fever. Patient notes mild cough. Agree with remdesivir. Supplemental oxygen as needed (3) Anemia: Patient with history of paroxysmal atrial fibrillation. In sinus rhythm. Recent surgical left atrial appendage clipping, and was discharged off of anticoagulation with noted history of gastrointestinal bleeding in 2020. Hemoglobin relatively stable at 8.4. Patient has history of chronic anemia, notes dark stool. Iron deficiency noted. -Received a dose of IV iron sucrose, 06/02/2022. -Would have low threshold with regards to reinitiating pharmacologic DVT prophylaxis given stasis, recent postoperative state, COVID-19. (4) Dark stools: Agree with Protonix pending further observation. (5) History of Aortic stenosis for which patient underwent TAVR , followed by recent S-AVR: Treated with balloon valvuloplasty, then TAVR in 2020, developed embolization of initial TAVR prosthesis to the distal ascending aorta, second TAVR prosthesis complicated by perivalvular leak, prompting surgical AVR April,. -Normal Prosthetic valve function on echocardiogram 06/01/2022 (6) CAD (coronary artery disease): Aspirin on hold due to anemia, concern of heme positive stool. Continue metoprolol succinate, atorvastatin. (7) paroxysmal atrial fibrillation -Continue metoprolol, amiodarone for rhythm control. -Off of anticoagulation due to history of gastrointestinal bleeding, left atrial appendage surgical clip performed. (8) Gram-positive chains on 11/29 blood culture 05/31/2022. Repeat cultures obtained. -Perhaps contaminant. Agree with empiric antibiotics pending further results. Admission and Anticipated Discharge Date Admission Date: June 01, 2022 Subjective Patient seen in cardiology follow-up of shortness of breath. Feeling well, he states he feels like he is making progress. He remains afebrile, last fever was noted on 05/31/2022. Pulse oximetry 94% on room air this morning. Physical Exam Constitutional: + obese; no acute distress Respiratory: normal respiratory effort, lungs clear to auscultation Cardiovascular: Rate/Rhythm: regular rate and regular rhythm Heart Sounds: normal S1 and normal S2; no murmur Vessels: no JVD Extremities: + edema (1-2+ lower extremity edema) Gastrointestinal (Abdomen): normal bowel sounds, soft, nontender, no he patosplenomegaly Neurologic: PERRL, EOMI, accommodation nl, no face palsy, no dysarthria Results & Data ([facility]) Vital Signs (Past 12 Hours) Vital Signs Temp Pulse Pulse Resp BP Pulse Ox Pulse Ox 06/03/22 09:59 80 06/03/22 08:00 94 06/03/22 07:57 36.7 C 87 18 122/64 94 06/03/22 04:00 92 06/03/22 03:46 36.9 C 75 18 121/63 93 06/03/22 00:00 92 06/02/22 23:34 36.7 C 79 20 120/59 L 94 Laboratory Results Cardiac Enzymes 06/03/22 Range/Units 06:16 AST 19 (13-39) U/L CBC 06/03/22 Range/Units 06:16 WBC 8.72 (4.8-10.8) K/ul RBC 2.74 L (4.63-6.08) M/uL Hgb 8.4 L (14.0-18.0) g/dl Hct 25.8 L (40.1-51.0) % Plt Count 338 (130-400) K/uL Comprehensive Metabolic Panel 06/03/22 Range/Units 06:16 Sodium 137 (136-145) mmol/L Potassium 3.7 (3.5-5.1) mmol/L Chloride 101 (98-107) mmol/L Carbon Dioxide 30 (21-32) mmol/L BUN 25 H (6-23) mg/dl Creatinine 1.23 (0.6-1.4) mg/dl Glucose 111 H (70-99(Fasting)) mg/dl Calcium 7.4 L (8.5-10.1) mg/dl Direct Bilirubin 0.1 (0-0.2) mg/dl AST 19 (13-39) U/L ALT 28 (7-52) U/L Alkaline Phosphatase 83 (34-104) U/L Total Protein 5.8 L (6.0-8.3) gm/dl Albumin 3.1 L (3.4-5.0) gm/dl Intake and Output 06/02/22 06/03/22 06/03/22 22:59 06:59 14:59 Intake Total 593.5 / 1679.5 328 / 1679.5 108 / 108 Output Total 1225 / 3345 600 / 3345 1200 / 1200 Balance -631.5 / -1665.5 -272 / -1665.5 -1092 / -1092 Intake: IV 473.5 / 939.5 108 / 939.5 108 / 108 Ampicillin/Sulbactam Sod 3,000 216 / 432 108 / 432 108 / 108 mg In 0.9 % Sodium Chloride 100 ml @ 200 mls/hr IV Q6H [facility] Rx# :[id number] Iron Sucrose 150 mg In Sodium 257.5 / 257.5 Chloride 0.9% 250 ml @ 176.667 mls/hr IV TODAY ONE Rx#: [id number] Oral 120 / 740 220 / 740 Output: Urine 1225 / 3345 600 / 3345 1200 / 1200 Other: Weight 104.3 kg Weight Measurement Method Built in [facility]
[2022-06-03] MEDS: REMDESIVIR 100 MG in SODIUM CHLORIDE 0.9% 230 ML IV SCH (12:31)
--- NOTE | 2022-06-03 13:07 | Hospitalist Progress Note ---
Date of Service June 03, 2022 Assessment & Plan (1) SOB (shortness of breath): Plan: Acute diastolic heart failure Demand ischemia in setting of COVID19 and acute decompensated CHF --CTA:No evidence of pulmonary embolism. Postprocedural changes in this patient status post recent TAVR explant surgery with anterior mediastinal stranding and a tiny amount of gas. Trace bilateral pleural effusions with atelectasis noted. --ECHO obtained Sinus rhythm in 70s present during echo study. Mild concentric LVH. Abnormal septal motion consistent with postoperative state. LV wall motion is otherwise normal. LV systolic function is normal. LVEF 55 to 60%. Diastolic dysfunction grade 2. LA is moderately dilated. There is a bioprosthetic valve in the aortic position. The gradient is normal for this prosthetic aortic valve. There is no significant aortic regurg. --Last ECHO:05/25/22: Left ventricle is normal in size. Left ventricle systolic function is normal. EF~ 65%. Right ventricle is normal in size. Right ventricle systolic function is normal. There is significant MAC with peak and mean transmitral gradient 9 and 6 mmHg respectively. 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 There is no aortic valve regurgitation. The peak gradient is 13 mmHg, the mean gradient is 6 mmHg and dimensionless valve index is 0.71. -- Troponin trending down --Continue IV Lasix as per cardiology Appreciate cardiology input Monitor volume status, renal function Continue metoprolol, Lipitor Aspirin on hold due to concern for GI bleed Recent TAVR at the [facility] for prosthetic valve dysfunction CAD S/P CABG (04/2022) H/O S/P TAVR (2020) Continue current medications, as above Aspirin on hold due to anemia, concern for heme positive stool Monitor COVID-19 Infection Vaccinated State Saturating well on room air Procalcitonin 0.08 CRP 4.14 CTA as above Given the comorbidities and possible risk for progression, started on Remdesivir , will continue If patient develops persistent, Hypoxia, will need Dexamethasone initiated 06/02 symptoms improving as per patient will check O2 sats on room air, if <93%, may initiate Decadron LFTs, Renal function OK Bacteremia: 1/2 blood Cx growing positive cocci in chains- Enterococci- sensitivities pending repeat BC: pending ECHO: noted continue Unasyn IV ID consult placed H/O paroxysmal atrial fibrillation Currently in sinus Had surgical left atrial appendage clip pain Continue amiodarone, Metoprolol Off anticoagulation due to history of GI bleed Hypertension BP stable Continue home meds Hyperlipidemia on statin Dark stools + FOBT H/O Iron deficiency anemia Aspirin held for now On IV Protonix Monitor H&H and transfuse as needed GI consulted No plan for endoscopy as per GI currently Iron 15- IV and PO Iron Hg remains at 8 continue Protonix IV 40mg BID cont. to monitor GERD on PPI Hyperglycemia Can note rule out DM II HbA1C: 5.6 : Unlikely inaccurate given Anemia/GI bleed Monitor BGs DVT Px: SCDs on;ly initially (Re possible GI bleed), start heparin subq, cont. to monitor Code Status Full code Admission and Anticipated Discharge Date Admission Date: June 01, 2022 Subjective Pt seen in follow-up of acute on chronic heart failure, history of TAVR, positive COVID 19 Currently laying in bed, in no acute distress Denies fevers, chills, chest pain, shortness of breath, palpitations. Denies significant cough. States that he feels better. Appears very weak, needs a lot of help during physical exam. Review of Systems Review of Systems: All systems reviewed & are unremarkable except as noted in Subjective Physical Exam Physical Exam: General- oriented x 3, not in distress, speaks in sentences with no effort or accessory muscle use Eyes- PERRL, EOMI, anicteric Neck- no JVD Lungs- no crackles, good air entry BL Heart- normal rate, regular rhythm; no murmurs Abdomen- normal bowel sounds, nondistended, soft, nontender Extremities- mild LE edema, no calf tenderness Neuro- alert, oriented x 3; speech fluent, moves extremities Skin- warm & dry Results & Data Results & Data ([facility]) Vital Signs (Past 12 Hours) Vital Signs Temp Pulse Pulse Resp BP Pulse Ox Pulse Ox 06/03/22 11:46 36.9 C 76 22 114/57 L 95 06/03/22 09:59 80 06/03/22 08:00 94 06/03/22 07:57 36.7 C 87 18 122/64 94 06/03/22 04:00 92 06/03/22 03:46 36.9 C 75 18 121/63 93 Laboratory Results 06/03/22 06/03/22 Range/Units 06:16 06:16 WBC 8.72 (4.8-10.8) K/ul RBC 2.74 L (4.63-6.08) M/uL Hgb 8.4 L (14.0-18.0) g/dl Hct 25.8 L (40.1-51.0) % MCV 94.2 (80.0-100.0) fL MCH 30.7 (25.0-34.0) pg MCHC 32.6 (32.0-36.0) g/dL RDW Std Deviation 54.3 H (36.4-46.3) fL RDW Coeff of Michael 16.0 H (11.5-14.5) % Plt Count 338 (130-400) K/uL MPV 8.8 L (9.4-12.4) fL Sodium 137 (136-145) mmol/L Potassium 3.7 (3.5-5.1) mmol/L Chloride 101 (98-107) mmol/L Carbon Dioxide 30 (21-32) mmol/L Anion Gap 6 (3-11) BUN 25 H (6-23) mg/dl Creatinine 1.23 (0.6-1.4) mg/dl Est Cr Clr Drug Dosing 54.1 ml/min Est GFR ( Amer) 62.1 ml/min Est GFR (Non-Af Amer) 53.6 ml/min BUN/Creatinine Ratio 20.3 H (10-20) Glucose 111 H (70-99(Fasting)) mg/dl Calcium 7.4 L (8.5-10.1) mg/dl Total Bilirubin 0.6 (0.2-1.0) mg/dl Direct Bilirubin 0.1 (0-0.2) mg/dl AST 19 (13-39) U/L ALT 28 (7-52) U/L Alkaline Phosphatase 83 (34-104) U/L Total Protein 5.8 L (6.0-8.3) gm/dl Albumin 3.1 L (3.4-5.0) gm/dl Medications Administered Current Inpatient Medications Acetaminophen (Acetaminophen 325 Mg Tab) 650 mg PO Q4H PRN PRN Reason: Pain Stop: 07/01/22 04:10 Amiodarone HCl (Amiodarone 200 Mg Tab) 200 mg PO QAM [place] Stop: 07/01/22 08:59 Last Admin: 06/03/22 07:59 Dose: 200 mg Documented by: Atorvastatin Calcium (Atorvastatin 40 Mg Tab) 40 mg PO HS [facility] Stop: 07/01/22 20:59 Last Admin: 06/02/22 21:12 Dose: 40 mg Documented by: Calcium Carbonate (Calcium Carbonate 1250mg Tab) 1,250 mg PO BIDM [place] Stop: 07/02/22 16:59 Last Admin: 06/03/22 08:00 Dose: 1,250 mg Documented by: Ferrous Sulfate (Ferrous Sulfate 325 Mg Tab) 325 mg PO DAILY [place] Stop: 07/01/22 08:59 Last Admin: 06/03/22 07:59 Dose: 325 mg Documented by: Furosemide (Furosemide 40 Mg/4 Ml Vial) 40 mg IV [id number] [facility] Stop: 07/02/22 13:59 Last Admin: 06/03/22 06:15 Dose: 40 mg Documented by: Heparin Sodium (Porcine) (Heparin Sod 5,000 Unit/0.5 Ml Vial) 5,000 units SQ Q12 [facility] Stop: 07/03/22 20:59 Promethazine HCl 12.5 mg/ (Sodium Chloride) 50.5 mls @ 202 mls/hr IV Q6H PRN PRN Reason: Nausea And Vomiting Stop: 07/01/22 04:10 Pantoprazole Sodium 40 mg/ (Syringe) 10 mls @ 5 mls/min IV BID [facility] Stop: 07/01/22 08:59 Last Admin: 06/03/22 09:28 Dose: 5 mls/min Documented by: Remdesivir 100 mg/ Sodium (Chloride) 250 mls @ 250 mls/hr IV Q24H [facility] Stop: 06/05/22 12:59 Last Admin: 06/03/22 12:31 Dose: 250 mls/hr Documented by: Ampicillin Sodium/Sulbactam Sodium 3,000 mg/ Sodium Chloride 108 mls @ 200 mls/hr IV Q6H [facility]; Protocol Stop: 06/15/22 15:59 Last Infusion: 06/03/22 10:02 Dose: Infused Documented by: Levalbuterol HCl (Levalbuterol Tartrate 15 Gm Hfa.Aer.Ad) 2 puffs INH Q4R PRN PRN Reason: sob/wheeze Stop: 07/01/22 04:10 Melatonin (Melatonin 3 Mg Tab) 3 mg PO HS PRN PRN Reason: Sleep Stop: 07/01/22 20:36 Last Admin: 06/01/22 21:14 Dose: 3 mg Documented by: Metoprolol Succinate (Metoprolol Succ 25mg Ext Rel Tab) 25 mg PO DAILY [place] Stop: 07/01/22 08:59 Last Admin: 06/03/22 07:59 Dose: 25 mg Documented by: Nitroglycerin (Nitroglycerin Sl 0.4 Mg/Tab Tab) 0.4 mg SL UD PRN PRN Reason: Chest Pain Stop: 07/01/22 04:10 Polyethylene Glycol (Polyethylene (Miralax) 17 Gm Pack) 17 gm PO QAM PRN PRN Reason: CONSTIPATION Stop: 07/01/22 15:19 Potassium Chloride (Potassium Chloride Crtab 20 Meq Tabcr) 20 meq PO DAILY [place] Stop: 07/01/22 08:59 Last Admin: 06/03/22 08:00 Dose: 20 meq Documented by: Terazosin HCl (Terazosin Hcl 1 Mg Cap) 2 mg PO HS [place] Stop: 07/01/22 20:59 Last Admin: 06/02/22 21:12 Dose: 2 mg Documented by: Tramadol HCl (Tramadol Hcl 50 Mg Tablet) 25 mg PO Q4H PRN PRN Reason: Pain Stop: 07/01/22 04:10
[2022-06-03] MEDS: TERAZOSIN HCL 1 MG CAP PO SCH (20:41)
[2022-06-03] MEDS: HEPARIN SOD 5,000 UNIT/0.5 ML VIAL SQ SCH (20:42)
[2022-06-03] MEDS: ATORVASTATIN 40 MG TAB PO SCH (20:42)
[2022-06-04] MEDS: AMPICILLIN/SULBACTAM SOD 3,000 MG in 0.9 % SODIUM CHLORIDE 100 ML IV SCH ×4 (03:55→22:14)
[2022-06-04] MEDS ORDERED: ALBUMIN 25% 12.5 GM/50 ML VIAL IV ONE (04:06)
[2022-06-04] MEDS ORDERED: POTASSIUM CHLORIDE CRTAB 20 MEQ TABCR PO STA (04:06)
[2022-06-04 05:15] LABS: Basophils # (auto) 0.01 K/uL (0-0.2); Basophils % (auto) 0.1 %; Eosinophils # (auto) 0.13 K/uL (0-0.50); Eosinophils % (auto) 1.7 %; Hematocrit (blood only) 25.4 % (40.1-51.0); Hemoglobin 8.2 g/dl (14.0-18.0); Immature Granulocytes # (auto) 0.02 K/uL (0.00-0.02); Immature Granulocytes % (auto) 0.3 %; Lymphocytes # (auto) 0.89 K/uL (1.2-3.4); Lymphocytes % (auto) 11.6 %; Mean Corpuscular Hemoglobin 30.8 pg (25.0-34.0); Mean Corpuscular Hgb Conc 32.3 g/dL (32.0-36.0); Mean Corpuscular Volume 95.5 fL (80.0-100.0); Mean Platelet Volume 8.3 fL (9.4-12.4); Monocytes # (auto) 0.94 K/uL (0.24-0.82); Monocytes % (auto) 12.3 %; Neutrophils # (auto) 5.68 K/uL (1.4-6.5); Platelet Count 272 K/uL (130-400); RDW Coefficient of Variation 15.8 % (11.5-14.5); RDW Standard Deviation 53.3 fL (36.4-46.3); Red Blood Count 2.66 M/uL (4.63-6.08); White Blood Count 7.67 K/ul (4.8-10.8)
[2022-06-04 05:36] LABS: Calcium 7.4 mg/dl (8.5-10.1); Creatinine Clr Calc Pharmacy 49.3 ml/min; Est GFR (African American) 55.5 ml/min; Est GFR (Non-African American) 47.9 ml/min; Magnesium 2.1 mg/dl (1.7-2.4); Potassium 3.5 mmol/L (3.5-5.1)
[2022-06-04] MEDS: AMIODARONE 200 MG TAB PO SCH (07:55)
[2022-06-04] MEDS: HEPARIN SOD 5,000 UNIT/0.5 ML VIAL SQ SCH ×2 (07:55→20:45)
[2022-06-04] MEDS: POTASSIUM CHLORIDE CRTAB 20 MEQ TABCR PO SCH (07:55)
[2022-06-04] MEDS: METOPROLOL SUCC 25MG EXT REL TAB PO SCH (07:55)
[2022-06-04] MEDS: CALCIUM CARBONATE 1250MG TAB PO SCH ×2 (07:55→17:05)
[2022-06-04] MEDS: FERROUS SULFATE 325 MG TAB PO SCH (07:55)
[2022-06-04] MEDS: FUROSEMIDE 40 MG/4 ML VIAL IV SCH (07:56)
[2022-06-04] MEDS: PANTOprazole 40 MG in SYRINGE 0 ML IV SCH ×2 (09:59→20:45)
--- NOTE | 2022-06-04 10:23 | Hospitalist Progress Note ---
Date of Service June 04, 2022 Assessment & Plan (1) SOB (shortness of breath): Plan: Acute diastolic heart failure Demand ischemia in setting of COVID19 and acute decompensated CHF --CTA:No evidence of pulmonary embolism. Postprocedural changes in this patient status post recent TAVR explant surgery with anterior mediastinal stranding and a tiny amount of gas. Trace bilateral pleural effusions with atelectasis noted. --ECHO obtained Sinus rhythm in 70s present during echo study. Mild concentric LVH. Abnormal septal motion consistent with postoperative state. LV wall motion is otherwise normal. LV systolic function is normal. LVEF 55 to 60%. Diastolic dysfunction grade 2. LA is moderately dilated. There is a bioprosthetic valve in the aortic position. The gradient is normal for this prosthetic aortic valve. There is no significant aortic regurg. --Last ECHO:05/25/22: Left ventricle is normal in size. Left ventricle systolic function is normal. EF~ 65%. Right ventricle is normal in size. Right ventricle systolic function is normal. There is significant MAC with peak and mean transmitral gradient 9 and 6 mmHg respectively. 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 There is no aortic valve regurgitation. The peak gradient is 13 mmHg, the mean gradient is 6 mmHg and dimensionless valve index is 0.71. -- Troponin trending down -- switch IV Lasix to p.o. 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) Continue current medications, as above Aspirin initially on hold due to anemia, concern for heme positive stool, now ASA resumed Monitor COVID-19 Infection Vaccinated State Saturating well on room air Procalcitonin 0.08 CRP 4.14 CTA as above Given the comorbidities and possible risk for progression, started on Remdesivir , will continue If patient develops persistent, Hypoxia, will need Dexamethasone initiated /6 symptoms improving as per patient will check O2 sats on room air, if <93%, may initiate Decadron LFTs, Renal function OK Bacteremia: 1/2 blood Cx growing positive cocci in chains- Enterococci- sensitivities pending repeat BC: pending ECHO: noted continue Unasyn IV ID consult placed H/O paroxysmal atrial fibrillation Currently in sinus Had surgical left atrial appendage clip pain Continue amiodarone, Metoprolol Off anticoagulation due to history of GI bleed Hypertension BP stable Continue home meds Hyperlipidemia on statin Dark stools + FOBT H/O Iron deficiency anemia Aspirin held initially, now resumed On Protonix Monitor H&H and transfuse as needed GI consulted No plan for endoscopy as per GI currently Iron 15- IV and PO Iron Hg remains at 8 continue Protonix 40mg BID cont. to monitor GERD on PPI Hyperglycemia Can note rule out DM II HbA1C: 5.6 : Unlikely inaccurate given Anemia/GI bleed Monitor BGs DVT Px: SCDs on;ly initially (Re possible GI bleed), started heparin subq, cont. to monitor Code Status Full code Admission and Anticipated Discharge Date Admission Date: June 01, 2022 Subjective Pt seen in follow-up of acute on chronic heart failure, history of TAVR, positive COVID 19 Currently laying in bed, in no acute distress Denies fevers, chills, chest pain, shortness of breath, palpitations. Denies significant cough. States that he feels better. Appears quite weak. IV Lasix switched to torsemide p.o., today by cardiology ID consult today Review of Systems Review of Systems: All systems reviewed & are unremarkable except as noted in Subjective Physical Exam Physical Exam: General- oriented x 3, not in distress, speaks in sentences with no effort or accessory muscle use Eyes- PERRL, EOMI, anicteric Neck- no JVD Lungs- no crackles, good air entry BL Heart- normal rate, regular rhythm; no murmurs Abdomen- normal bowel sounds, nondistended, soft, nontender Extremities- mild LE edema, no calf tenderness Neuro- alert, oriented x 3; speech fluent, moves extremities Skin- warm & dry Results & Data Results & Data ([facility]) Vital Signs (Past 12 Hours) Vital Signs Temp Pulse Pulse Resp BP Pulse Ox 06/04/22 08:00 37.4 C 80 79 20 107/52 L 94 06/04/22 03:55 37.0 C 83 16 92/74 L 92 06/04/22 00:00 37.2 C 78 16 123/64 94 Laboratory Results 06/04/22 06/04/2222 Range/Units 05:07 05:07 05:07 WBC 7.67 (4.8-10.8) K/ul RBC 2.66 L (4.63-6.08) M/uL Hgb 8.2 L (14.0-18.0) g/dl Hct 25.4 L (40.1-51.0) % MCV 95.5 (80.0-100.0) fL MCH 30.8 (25.0-34.0) pg MCHC 32.3 (32.0-36.0) g/dL RDW Std Deviation 53.3 H (36.4-46.3) fL RDW Coeff of Michael 15.8 H (11.5-14.5) % Plt Count 272 (130-400) K/uL MPV 8.3 L (9.4-12.4) fL Immature Gran % (Auto) 0.3 % Neut % (Auto) 74.0 % Lymph % (Auto) 11.6 % [place] % (Auto) 12.3 % Eos % (Auto) 1.7 % Baso % (Auto) 0.1 % Neut # (Auto) 5.68 (1.4-6.5) K/uL Lymph # (Auto) 0.89 L (1.2-3.4) K/uL [place] # (Auto) 0.94 H (0.24-0.82) K/uL Eos # (Auto) 0.13 (0-0.50) K/uL Baso # (Auto) 0.01 (0-0.2) K/uL Immature Gran # (Auto) 0.02 (0.00-0.02) K/uL Sodium 135 L (136-145) mmol/L Potassium 3.5 (3.5-5.1) mmol/L Chloride 100 (98-107) mmol/L Carbon Dioxide 29 (21-32) mmol/L Anion Gap 6 (3-11) BUN 23 (6-23) mg/dl Creatinine 1.35 (0.6-1.4) mg/dl Est Cr Clr Drug Dosing 49.3 ml/min Est GFR ( Amer) 55.5 ml/min Est GFR (Non-Af Amer) 47.9 ml/min BUN/Creatinine Ratio 17.0 (10-20) Glucose 108 H (70-99(Fasting)) mg/dl Lactate 0.7 (0.4-2.0) mmol/L Calcium 7.4 L (8.5-10.1) mg/dl Magnesium 2.1 (1.7-2.4) mg/dl Medications Administered Current Inpatient Medications Acetaminophen (Acetaminophen 325 Mg Tab) 650 mg PO Q4H PRN PRN Reason: Pain Stop: 07/01/22 04:10 Amiodarone HCl (Amiodarone 200 Mg Tab) 200 mg PO QAM [place] Stop: 07/01/22 08:59 Last Admin: 06/04/22 07:55 Dose: 200 mg Documented by: Atorvastatin Calcium (Atorvastatin 40 Mg Tab) 40 mg PO HS [place] Stop: 07/01/22 20:59 Last Admin: 06/03/22 20:42 Dose: 40 mg Documented by: Calcium Carbonate (Calcium Carbonate 1250mg Tab) 1,250 mg PO BIDM [place] Stop: 07/02/22 16:59 Last Admin: 06/04/22 07:55 Dose: 1,250 mg Documented by: Ferrous Sulfate (Ferrous Sulfate 325 Mg Tab) 325 mg PO DAILY [place] Stop: 07/01/22 08:59 Last Admin: 06/04/22 07:55 Dose: 325 mg Documented by: Furosemide (Furosemide 40 Mg/4 Ml Vial) 40 mg IV [id number] [place] Stop: 07/02/22 13:59 Last Admin: 06/04/22 07:56 Dose: 40 mg Documented by: Heparin Sodium (Porcine) (Heparin Sod 5,000 Unit/0.5 Ml Vial) 5,000 units SQ Q12 [place] Stop: 07/03/22 20:59 Last Admin: 06/04/22 07:55 Dose: 5,000 units Documented by: Promethazine HCl 12.5 mg/ (Sodium Chloride) 50.5 mls @ 202 mls/hr IV Q6H PRN PRN Reason: Nausea And Vomiting Stop: 07/01/22 04:10 Pantoprazole Sodium 40 mg/ (Syringe) 10 mls @ 5 mls/min IV BID [place] Stop: 07/01/22 08:59 Last Admin: 06/04/22 09:59 Dose: 5 mls/min Documented by: Remdesivir 100 mg/ Sodium (Chloride) 250 mls @ 250 mls/hr IV Q24H [place] Stop: 06/05/22 12:59 Last Infusion: 06/03/22 13:44 Dose: Infused Documented by: Ampicillin Sodium/Sulbactam Sodium 3,000 mg/ Sodium Chloride 108 mls @ 200 mls/hr IV Q6H [place]; Protocol Stop: 06/15/22 15:59 Last Admin: 06/04/22 09:56 Dose: 200 mls/hr Documented by: Levalbuterol HCl (Levalbuterol Tartrate 15 Gm Hfa.Aer.Ad) 2 puffs INH Q4R PRN PRN Reason: sob/wheeze Stop: 07/01/22 04:10 Melatonin (Melatonin 3 Mg Tab) 3 mg PO HS PRN PRN Reason: Sleep Stop: 07/01/22 20:36 Last Admin: 06/01/22 21:14 Dose: 3 mg Documented by: Metoprolol Succinate (Metoprolol Succ 25mg Ext Rel Tab) 25 mg PO DAILY [place] Stop: 07/01/22 08:59 Last Admin: 06/04/22 07:55 Dose: 25 mg Documented by: Nitroglycerin (Nitroglycerin Sl 0.4 Mg/Tab Tab) 0.4 mg SL UD PRN PRN Reason: Chest Pain Stop: 07/01/22 04:10 Polyethylene Glycol (Polyethylene (Miralax) 17 Gm Pack) 17 gm PO QAM PRN PRN Reason: CONSTIPATION Stop: 07/01/22 15:19 Potassium Chloride (Potassium Chloride Crtab 20 Meq Tabcr) 20 meq PO DAILY [place] Stop: 07/01/22 08:59 Last Admin: 06/04/22 07:55 Dose: 20 meq Documented by: Terazosin HCl (Terazosin Hcl 1 Mg Cap) 2 mg PO HS [place] Stop: 07/01/22 20:59 Last Admin: 06/03/22 20:41 Dose: 2 mg Documented by: Tramadol HCl (Tramadol Hcl 50 Mg Tablet) 25 mg PO Q4H PRN PRN Reason: Pain Stop: 07/01/22 04:10
--- NOTE | 2022-06-04 10:39 | Cardiology Progress Note ---
Date of Service June 04, 2022 Assessment & Plan (1) Acute on chronic heart failure with preserved ejection fraction (HFpEF): (2) COVID-19: (3) Anemia: (4) Dark stools: (5) Aortic stenosis: (6) CAD (coronary artery disease): Plan: 86 year old male with complex history as noted, presents with shortness of breath having been recently discharged from [facility], 05/28/2022, status post explantation of TAVR prosthesis x2, surgical aortic valve replacement with Art-Bernal bioprosthesis, CABG x1, SVG to diagonal, left atrial appendage clip. (1) Acute on chronic heart failure with preserved ejection fraction (HFpEF): -Echocardiogram performed 06/01/2022 revealed normal LVEF, grade 2 diastolic dysfunction, normal prosthetic aortic valve function. Patient with favorable diuretic response, -1.6 L fluid balance in last 24h. Discontinue IV furosemide. Transition to torsemide 20 mg daily in am (replaces [facility]IST furosemide 40 mg daily). Potassium chlorite 10 me daily. (2) COVID-19: Patient with mild fever 37.7 on presentation. No additional fever. Patient notes mild cough. Completed course of remdesivir. Oxygen saturations stable. (3) Anemia: Patient with history of paroxysmal atrial fibrillation. In sinus rhythm. Recent surgical left atrial appendage clipping, and was discharged off of anticoagulation with noted history of gastrointestinal bleeding in 2020. Hemoglobin relatively stable at 8.2. Patient has history of chronic anemia, notes dark stool. Iron deficiency noted. -Received a dose of IV iron sucrose, 06/02/2022. (4) Dark stools: Transition back to [facility]IST oral protonix (5) History of Aortic stenosis for which patient underwent TAVR , followed by recent S-AVR: Treated with balloon valvuloplasty, then TAVR in 2020, developed embolization of initial TAVR prosthesis to the distal ascending aorta, second TAVR prosthesis complicated by perivalvular leak, prompting surgical AVR April,. -Normal Prosthetic valve function on echocardiogram 06/01/2022 (6) CAD (coronary artery disease): Add back aspirin, 06/04/22. Continue metoprolol succinate, atorvastatin. (7) paroxysmal atrial fibrillation -Continue metoprolol, amiodarone for rhythm control. -Off of anticoagulation due to history of gastrointestinal bleeding, left atrial appendage surgical clip performed. (8) Enterococcus faecalis on 11/29 blood culture 05/31/2022. Repeat cultures obtained and negative on ampicillin / sulbactam since 06/01. ID input pending. Did come in with a fever, recently post op from AVR , CABG, but was also COVID+. TTE looked good. Disposition: Stable for discharge from a CHF perspective, after ID plan determined. SCDs as oupt. Increase walking as tolerated. Keep cardiology follow up with [facility] and Dr Leon in [place] as planned. Admission and Anticipated Discharge Date Admission Date: June 01, 2022 Subjective Patient seen in cardiology follow up. Feeling well. Denies fever or chills. Noted cough last night, improved this am. Pulse ox, 94% on room air this am. Telemetry reveals SR in the 70s. A brief run of atrial tachycardia or more likely atrial fibrillation noted overnight that lasted 2 minutes. Physical Exam Constitutional: + obese; no acute distress Respiratory: normal respiratory effort, lungs clear to auscultation Cardiovascular: Rate/Rhythm: regular rate and regular rhythm Heart Sounds: normal S1 and normal S2; no murmur Vessels: no JVD Extremities: + edema (1-2+ lower extremity edema) Gastrointestinal (Abdomen): normal bowel sounds, soft, nontender, no hepatosplenomegaly Neurologic: PERRL, EOMI, accommodation nl, no face palsy, no dysarthria Results & Data ([facility]) Vital Signs (Past 12 Hours) Vital Signs Temp Pulse Pulse Resp BP Pulse Ox 06/04/22 08:00 37.4 C 80 79 20 107/52 L 94 06/04/22 03:55 37.0 C 83 16 92/74 L 92 06/04/22 00:00 37.2 C 78 16 123/64 94 Laboratory Results CBC 06/04/22 Range/Units 05:07 WBC 7.67 (4.8-10.8) K/ul RBC 2.66 L (4.63-6.08) M/uL Hgb 8.2 L (14.0-18.0) g/dl Hct 25.4 L (40.1-51.0) % Plt Count 272 (130-400) K/uL Neut # (Auto) 5.68 (1.4-6.5) K/uL Lymph # (Auto) 0.89 L (1.2-3.4) K/uL [place] # (Auto) 0.94 H (0.24-0.82) K/uL Eos # (Auto) 0.13 (0-0.50) K/uL Baso # (Auto) 0.01 (0-0.2) K/uL Comprehensive Metabolic Panel 06/04/22 Range/Units 05:07 Sodium 135 L (136-145) mmol/L Potassium 3.5 (3.5-5.1) mmol/L Chloride 100 (98-107) mmol/L Carbon Dioxide 29 (21-32) mmol/L BUN 23 (6-23) mg/dl Creatinine 1.35 (0.6-1.4) mg/dl Glucose 108 H (70-99(Fasting)) mg/dl Calcium 7.4 L (8.5-10.1) mg/dl Intake and Output 06/03/22 06/04/22 06/04/22 22:59 06:59 14:59 Intake Total 1516 / 2032 158 / 2032 Output Total 300 / 2049 550 / 0 Balance 1216 / -18 -392 / -18 Intake: IV 216 / 732 158 / 732 Albumin 25% 12.5 gm In 50 ml @ 50 / 50 50 mls/hr IV ONE ONE Rx#: [id number] Ampicillin/Sulbactam Sod 3,000 216 / 432 108 / 432 mg In 0.9 % Sodium Chloride 100 ml @ 200 mls/hr IV Q6H [facility] Rx# :[id number] Oral 1300 / 1300 Output: Urine 300 / 0 550 / 2050 Other: # Unmeasured Voids 1 Weight 107.4 kg Weight Measurement Method Built in [facility]
[2022-06-04] MEDS: ASPIRIN 81 MG ECTAB PO SCH (11:05)
[2022-06-04] MEDS: REMDESIVIR 100 MG in SODIUM CHLORIDE 0.9% 230 ML IV SCH (14:07)
[2022-06-04] MEDS: ATORVASTATIN 40 MG TAB PO SCH (20:44)
[2022-06-04] MEDS: TERAZOSIN HCL 1 MG CAP PO SCH (20:44)
[2022-06-05] MEDS: AMPICILLIN/SULBACTAM SOD 3,000 MG in 0.9 % SODIUM CHLORIDE 100 ML IV SCH ×3 (04:37→15:24)
[2022-06-05] MEDS: CALCIUM CARBONATE 1250MG TAB PO SCH ×2 (08:57→15:59)
[2022-06-05] MEDS: ASPIRIN 81 MG ECTAB PO SCH (08:57)
[2022-06-05] MEDS: AMIODARONE 200 MG TAB PO SCH ×2 (08:57→16:00)
[2022-06-05] MEDS: FERROUS SULFATE 325 MG TAB PO SCH (08:58)
[2022-06-05] MEDS: PANTOprazole 40 MG in SYRINGE 0 ML IV SCH (08:58)
[2022-06-05] MEDS: HEPARIN SOD 5,000 UNIT/0.5 ML VIAL SQ SCH ×2 (08:58→21:19)
[2022-06-05] MEDS: METOPROLOL SUCC 25MG EXT REL TAB PO SCH (08:58)
[2022-06-05] MEDS: POTASSIUM CHLORIDE 10 MEQ TABCR PO SCH (08:59)
[2022-06-05] MEDS ORDERED: TORSEMIDE 10 MG TAB PO SCH (09:00)
--- NOTE | 2022-06-05 10:09 | Hospitalist Progress Note ---
Date of Service June 05, 2022 Assessment & Plan (1) SOB (shortness of breath): Plan: Acute diastolic heart failure Demand ischemia in setting of COVID19 and acute decompensated CHF --CTA:No evidence of pulmonary embolism. Postprocedural changes in this patient status post recent TAVR explant surgery with anterior mediastinal stranding and a tiny amount of gas. Trace bilateral pleural effusions with atelectasis noted. --ECHO obtained Sinus rhythm in 70s present during echo study. Mild concentric LVH. Abnormal septal motion consistent with postoperative state. LV wall motion is otherwise normal. LV systolic function is normal. LVEF 55 to 60%. Diastolic dysfunction grade 2. LA is moderately dilated. There is a bioprosthetic valve in the aortic position. The gradient is normal for this prosthetic aortic valve. There is no significant aortic regurg. --Last ECHO:05/25/22: Left ventricle is normal in size. Left ventricle systolic function is normal. EF~ 65%. Right ventricle is normal in size. Right ventricle systolic function is normal. There is significant MAC with peak and mean transmitral gradient 9 and 6 mmHg respectively. 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 There is no aortic valve regurgitation. The peak gradient is 13 mmHg, the mean gradient is 6 mmHg and dimensionless valve index is 0.71. -- Troponin trending down -- switched IV Lasix to p.o. torsemide (), as per cardiology, now will use IV again as LE edema, posit. 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 CAD S/P CABG (04/2022) H/O S/P TAVR (2020) Continue current medications, as above Aspirin initially on hold due to anemia, concern for heme positive stool, now ASA resumed Monitor COVID-19 Infection Vaccinated State Saturating well on room air Procalcitonin 0.08 CRP 4.14 CTA as above Given the comorbidities and possible risk for progression, started on Remdesivir , will continue If patient develops persistent, Hypoxia, will need Dexamethasone initiated 06/02 symptoms improving as per patient will check O2 sats on room air, if <93%, may initiate Decadron LFTs, Renal function OK Bacteremia: 1/2 blood Cx growing positive cocci in chains- Enterococci- sensitivities pending repeat BC: pending ECHO: noted Unasyn IV -> will switch to ampicillin, as below, per ID recs ID consulted - Recommend checking CT abd/pelvis with oral contrast to look for potential abdominal source, if negative then recommend 2 weeks of IV antibiotics. - Recommend Stopping Unasyn IV and switching to Ampicillin 2g q6 IV for a total of 2 weeks from first negative blood culture on 06/02/2022. - Recommend CBC and CMP every week CT abd. pelvis orderd H/O paroxysmal atrial fibrillation Currently in sinus Had surgical left atrial appendage clip pain Continue amiodarone, Metoprolol, amiodarone increased to BID Off anticoagulation due to history of GI bleed Hypertension BP stable Continue home meds Hyperlipidemia on statin Dark stools + FOBT H/O Iron deficiency anemia Aspirin held initially, now resumed On Protonix Monitor H&H and transfuse as needed GI consulted No plan for endoscopy as per GI currently Iron 15- IV and PO Iron Hg remains at 8 continue Protonix 40mg BID cont. to monitor GERD on PPI Hyperglycemia Can note rule out DM II HbA1C: 5.6 : Unlikely inaccurate given Anemia/GI bleed Monitor BGs DVT Px: SCDs on;ly initially (Re possible GI bleed), started heparin subq, cont. to monitor Code Status Full code Admission and Anticipated Discharge Date Admission Date: June 01, 2022 Subjective Pt seen in follow-up of acute on chronic heart failure, history of TAVR, positive COVID 19 ID consult yesterday IV Lasix switched to torsemide p.o.,yesterday, pt now seems to have posit. fluid balance, also converted to afib Currently laying in bed, in no acute distress Denies fevers, chills, chest pain, shortness of breath, palpitations. Denies significant cough. States that he feels better. Appears quite weak. Review of Systems Review of Systems: All systems reviewed & are unremarkable except as noted in Subjective Physical Exam Physical Exam: General- oriented x 3, not in distress, speaks in sentences with no effort or accessory muscle use Eyes- PERRL, EOMI, anicteric Neck- no JVD Lungs- no crackles, good air entry BL Heart- normal rate, regular rhythm; no murmurs Abdomen- normal bowel sounds, nondistended, soft, nontender Extremities- +2 LE edema, no calf tenderness Neuro- alert, oriented x 3; speech fluent, moves extremities Skin- warm & dry Results & Data Results & Data ([facility]) Vital Signs (Past 12 Hours) Vital Signs Temp Pulse Pulse Resp BP Pulse Ox 06/05/22 07:44 36.8 C 79 20 131/65 97 06/05/22 02:49 36.5 C 89 18 99/55 L 93 06/05/22 02:20 86 06/04/22 22:46 36.8 C 88 18 95/57 L 92 Medications Administered Current Inpatient Medications Acetaminophen (Acetaminophen 325 Mg Tab) 650 mg PO Q4H PRN PRN Reason: Pain Stop: 07/01/22 04:10 Amiodarone HCl (Amiodarone 200 Mg Tab) 200 mg PO QAM [facility] Stop: 07/01/22 08:59 Last Admin: 06/05/22 08:57 Dose: 200 mg Documented by: Aspirin (Aspirin 81 Mg Ectab) 81 mg PO QAM [facility] Stop: 07/04/22 10:44 Last Admin: 06/05/22 08:57 Dose: 81 mg Documented by: Atorvastatin Calcium (Atorvastatin 40 Mg Tab) 40 mg PO HS [facility] Stop: 07/01/22 20:59 Last Admin: 06/04/22 20:44 Dose: 40 mg Documented by: Calcium Carbonate (Calcium Carbonate 1250mg Tab) 1,250 mg PO BIDM [facility] Stop: 07/02/22 16:59 Last Admin: 06/05/22 08:57 Dose: 1,250 mg Documented by: Ferrous Sulfate (Ferrous Sulfate 325 Mg Tab) 325 mg PO DAILY [place] Stop: 07/01/22 08:59 Last Admin: 06/05/22 08:58 Dose: 325 mg Documented by: Heparin Sodium (Porcine) (Heparin Sod 5,000 Unit/0.5 Ml Vial) 5,000 units SQ Q12 [place] Stop: 07/03/22 20:59 Last Admin: 06/05/22 08:58 Dose: 5,000 units Documented by: Promethazine HCl 12.5 mg/ (Sodium Chloride) 50.5 mls @ 202 mls/hr IV Q6H PRN PRN Reason: Nausea And Vomiting Stop: 07/01/22 04:10 Pantoprazole Sodium 40 mg/ (Syringe) 10 mls @ 5 mls/min IV BID [place] Stop: 07/01/22 08:59 Last Admin: 06/05/22 08:58 Dose: 5 mls/min Documented by: Remdesivir 100 mg/ Sodium (Chloride) 250 mls @ 250 mls/hr IV Q24H [place] Stop: 06/05/22 12:59 Last Infusion: 06/04/22 15:03 Dose: Infused Documented by: Ampicillin Sodium/Sulbactam Sodium 3,000 mg/ Sodium Chloride 108 mls @ 200 mls/hr IV Q6H [facility]; Protocol Stop: 06/15/22 15:59 Last Infusion: 06/05/22 05:10 Dose: Infused Documented by: Levalbuterol HCl (Levalbuterol Tartrate 15 Gm Hfa.Aer.Ad) 2 puffs INH Q4R PRN PRN Reason: sob/wheeze Stop: 07/01/22 04:10 Melatonin (Melatonin 3 Mg Tab) 3 mg PO HS PRN PRN Reason: Sleep Stop: 07/01/22 20:36 Last Admin: 06/01/22 21:14 Dose: 3 mg Documented by: Metoprolol Succinate (Metoprolol Succ 25mg Ext Rel Tab) 25 mg PO DAILY [place] Stop: 07/01/22 08:59 Last Admin: 06/05/22 08:58 Dose: 25 mg Documented by: Nitroglycerin (Nitroglycerin Sl 0.4 Mg/Tab Tab) 0.4 mg SL UD PRN PRN Reason: Chest Pain Stop: 07/01/22 04:10 Polyethylene Glycol (Polyethylene (Miralax) 17 Gm Pack) 17 gm PO QAM PRN PRN Reason: CONSTIPATION Stop: 07/01/22 15:19 Potassium Chloride (Potassium Chloride 10 Meq Tabcr) 10 meq PO DAILY [place] Stop: 07/05/22 08:59 Last Admin: 06/05/22 08:59 Dose: 10 meq Documented by: Terazosin HCl (Terazosin Hcl 1 Mg Cap) 2 mg PO HS [place] Stop: 07/01/22 20:59 Last Admin: 06/04/22 20:44 Dose: 2 mg Documented by: Torsemide (Torsemide 10 Mg Tab) 20 mg PO QAM [place] Stop: 07/05/22 08:59 Last Admin: 06/05/22 08:59 Dose: 20 mg Documented by: Tramadol HCl (Tramadol Hcl 50 Mg Tablet) 25 mg PO Q4H PRN PRN Reason: Pain Stop: 07/01/22 04:10
[2022-06-05] MEDS: REMDESIVIR 100 MG in SODIUM CHLORIDE 0.9% 230 ML IV SCH (12:03)
--- NOTE | 2022-06-05 14:54 | Cardiology Progress Note ---
Date of Service June 05, 2022 Assessment & Plan (1) Acute on chronic heart failure with preserved ejection fraction (HFpEF): (2) Bacteremia due to Enterococcus: (3) COVID-19: (4) S/P AVR (aortic valve replacement): (5) Anemia: (6) CAD (coronary artery disease): Plan: Patient with significant lower extremity edema. Recommend IV furosemide 40 mg x 1 now then daily. Follow daily weight, fluid balance, and GFR. Continue daily potassium supplementation. Will adjust dose as needed. Telemetry revealing paroxysmal atrial fibrillation with controlled ventricular response. We will increase amiodarone to 200 mg twice daily. He is status post left atrial appen dage clip. Anticoagulation not prescribed after recent cardiac surgery due to anemia and history of gastrointestinal bleeding. Infectious disease input appreciated. Antibiotic recommendations include IV ampicillin 2 g every 6 hours IV for a total of 2 weeks after first negative blood culture dated 06/02/2022. Repeat CBC and CMP weekly. Admission and Anticipated Discharge Date Admission Date: June 01, 2022 Subjective 86-year-old patient seen examined at the bedside wearing appropriate PPE due to COVID-19 status. Complains of cough without sputum production. Requiring 2 L nasal cannula. Progressive lower extremity edema noted. Receiving 20 mg of torsemide daily. Positive fluid balance recorded. Telemetry reveals paroxysmal atrial fibrillation with controlled ventricular response. Patient converted to atrial fibrillation at approximately 11:47 PM. Denies palpitations. No orthopnea or PND. Review of Systems Review of Systems: All systems reviewed & are unremarkable except as noted in Subjective Physical Exam Constitutional: + ill appearing Respiratory: no respiratory distress and no labored breathing Auscultation: + diminished lung sounds (Bases bilateral); no rales, no rhonchi and no wheezes Cardiovascular: Rate/Rhythm: + irregularly irregular Heart Sounds: normal S1, normal S2 and + murmur (2/6 low pitch BRUCE) Vessels: radial pulses present; no JVD and no carotid bruit Gastrointestinal (Abdomen): Inspection/Auscultation: abdomen normal to inspection and normal bowel sounds; abdomen not distended Percussion/Palpation: abdomen soft; abdomen nontender, no guarding and abdomen not rigid Neurologic: CN's II-XI intact bilaterally and moves all extremities; no focal motor deficits Psychiatric: A+Ox3, euthymic affect Results & Data ([facility]) Vital Signs (Past 12 Hours) Vital Signs Temp Pulse Pulse Resp BP BP Pulse Ox 06/05/22 12:00 37.2 C 68 18 106/58 L 98 06/05/22 07:44 36.8 C 79 20 131/65 97 06/05/22 02:49 36.5 C 89 18 99/55 L 93
[2022-06-05] MEDS: FUROSEMIDE 40 MG/4 ML VIAL IV SCH (15:22)
--- NOTE | 2022-06-05 18:43 | CT Scan Report ---
CT abd pelvis oral con only CLINICAL HISTORY: enterococcus bacteremia COMPARISON STUDY: No previous studies for comparison. CT DOSE: 944.70 mGy.cm TECHNIQUE: Standard CT of the Abdomen and Pelvis was performed without IV contrast. The patient rece ived oral contrast. A dose lowering technique was utilized adhering to the principles of ALARA. FINDINGS: Lung base: There are small bilateral pleural effusions the patient is status post previous cardiothor acic surgery with coronary artery calcification. The heart is mildly enlarged. Abdominal cavity: There is no evidence for abdominal mass, adenopathy or ascites. Liver: The liver is homogeneous in attenuation on these limited noncontrast images.. Spleen: The spleen is homogeneous in attenuation on these limited noncontrast images. Pancreas: The pancreas is homogeneous in attenuation on these limited noncontrast images. Gall Bladder: The gallbladder is well distended with no evidence for cholelithiasis, wall thickening or pericholecystic edema.. Adrenal glands: The adrenal glands are normal in size and attenuation on these limited noncontrast im ages. Kidneys: The kidneys are homogeneous in attenuation on these limited noncontrast images. There is no evidence for gross renal mass, calculus or hydronephrosis bilaterally. Bowel: There is a moderate size hiatal hernia. Oral contrast is present within the stomach, small bow el and colon to the level of the splenic flexure. The bowel loops are normally placed within the abdo men and pelvis without evidence for dilatation or obstruction. There is no evidence for mass lesion. The mucosal pattern of the small and large bowel is within normal limits. There are no inflammatory c hanges present. There is no evidence for free air. Bladder: There is mild distention of the bladder with no evidence for focal bladder wall thickening, calculus or diverticulum. There is mild diffuse thickening of bladder wall characteristic of chronic bladder outlet obstruction. : There is no evidence for pelvic mass or adenopathy. There is moderate to marked prostate enlargem ent. Vasculature: There is no evidence for focal aneurysmal dilatation of the abdominal aorta. Atheroscler otic calcification is present. Osseous structures: There is no acute osseous pathology. Degenerative changes are seen within the spi ne. IMPRESSION: 1. Bowel gas pattern within normal limits without evidence for mucosal thickening or edematous change . 2. Small bilateral pleural effusions and bibasilar atelectasis. 3. No other evidence for acute intra-abdominal or pelvic abnormality on these limited noncontrast ethan ges. 4. Additional nonacute findings are delineated above. ACT 112: Negative or not required by law. Electronically signed by: Lj Devine M.D. 06/05/2022 6:41 PM
[2022-06-05] MEDS: PANTOprazole 40 MG TAB PO SCH (21:18)
[2022-06-05] MEDS: TERAZOSIN HCL 1 MG CAP PO SCH (21:18)
[2022-06-05] MEDS: ATORVASTATIN 40 MG TAB PO SCH (21:18)
[2022-06-05] MEDS: AMPICILLIN 2,000 MG in SODIUM CHLOR 0.9% AD-VAN 100 ML IV SCH (21:21)
[2022-06-05] MEDS ORDERED: POTASSIUM CHLORIDE CRTAB 20 MEQ TABCR PO STA (23:30)
[2022-06-06 00:40] LABS: Basophils # (auto) 0.01 K/uL (0-0.2); Basophils % (auto) 0.1 %; Eosinophils # (auto) 0.17 K/uL (0-0.50); Eosinophils % (auto) 2.1 %; Hematocrit (blood only) 25.3 % (40.1-51.0); Hemoglobin 8.1 g/dl (14.0-18.0); Immature Granulocytes # (auto) 0.03 K/uL (0.00-0.02); Immature Granulocytes % (auto) 0.4 %; Lymphocytes # (auto) 0.97 K/uL (1.2-3.4); Lymphocytes % (auto) 11.8 %; Mean Corpuscular Hemoglobin 30.3 pg (25.0-34.0); Mean Corpuscular Volume 94.8 fL (80.0-100.0); Mean Platelet Volume 8.8 fL (9.4-12.4); Monocytes # (auto) 0.89 K/uL (0.24-0.82); Monocytes % (auto) 10.9 %; Neutrophils # (auto) 6.12 K/uL (1.4-6.5); Neutrophils % (auto) 74.7 %; Platelet Count 272 K/uL (130-400); RDW Coefficient of Variation 16.3 % (11.5-14.5); RDW Standard Deviation 55.4 fL (36.4-46.3); Red Blood Count 2.67 M/uL (4.63-6.08); White Blood Count 8.19 K/ul (4.8-10.8)
[2022-06-06 00:57] LABS: Partial Thromboplastin Ratio 1.1
[2022-06-06 00:58] LABS: BUN Creatinine Ratio 13.2 (10-20); Calcium 7.6 mg/dl (8.5-10.1); Creatinine Clr Calc Pharmacy 49.5 ml/min; Est GFR (Non-African American) 47.4 ml/min; Potassium 3.2 mmol/L (3.5-5.1)
[2022-06-06] MEDS: AMPICILLIN 2,000 MG in SODIUM CHLOR 0.9% AD-VAN 100 ML IV SCH ×4 (04:45→22:03)
--- NOTE | 2022-06-06 09:06 | Cardiology Progress Note ---
Date of Service June 06, 2022 Assessment & Plan (1) Acute on chronic heart failure with preserved ejection fraction (HFpEF): (2) Bacteremia due to Enterococcus: (3) COVID-19: (4) S/P AVR (aortic valve replacement): (5) Anemia: (6) CAD (coronary artery disease): Plan: Continue furosemide 40 mg IV daily. Transition back to oral torsemide at discharge. Hypokalemia noted per a.m. labs. 40 mEq of oral potassium chloride ordered. Follow daily weight, fluid balance, and GFR. Increase daily potassium supplement to 20meq daily. Continue amiodarone 200 mg twice daily for 10 days then reduce dose to 200 mg daily. Patient is status post left atrial appendage clip. Anticoagulation not prescribed after recent cardiac surgery due to anemia and history of gastrointestinal bleeding. Infectious disease input appreciated. Antibiotic recommendations include IV ampicillin 2 g every 6 hours IV for a total of 2 weeks after first negative blood culture dated 06/02/2022. Repeat CBC and CMP weekly. Admission and Anticipated Discharge Date Admission Date: June 01, 2022 Subjective Patient seen and examined the bedside. States "I feel much better today". Requesting discharge. No fevers overnight. Telemetry reveals conversion to sinus rhythm. Amiodarone increased to 200 mg twice daily yesterday. Consumed his a.m. meal. IV furosemide restarted yesterday due to lower extremity edema. Offers no new concerns/complaints Review of Systems Review of Systems: All systems reviewed & are unremarkable except as noted in Subjective Physical Exam Constitutional: + ill appearing Respiratory: no respiratory distress and no labored breathing Auscultation: + diminished lung sounds (Bases bilateral); no rales, no rhonchi and no wheezes Cardiovascular: Rate/Rhythm: + irregularly irregular Heart Sounds: normal S1, normal S2 and + murmur (2/6 low pitch BRUCE) Vessels: radial pulses present; no JVD and no carotid bruit Gastrointestinal (Abdomen): Inspection/Auscultation: abdomen normal to inspection and normal bowel sounds; abdomen not distended Percussion/Palpation: abdomen soft; abdomen nontender, no guarding and abdomen not rigid Neurologic: CN's II-XI intact bilaterally and moves all extremities; no focal motor deficits Psychiatric: A+Ox3, euthymic affect Results & Data ([facility]) Vital Signs (Past 12 Hours) Vital Signs Temp Pulse Resp BP Pulse Ox 06/06/22 08:04 36.8 C 84 18 117/65 93 06/06/22 03:45 36.8 C 78 17 112/65 95 06/05/22 22:55 36.8 C 75 18 125/63 97
[2022-06-06] MEDS: FERROUS SULFATE 325 MG TAB PO SCH (09:32)
[2022-06-06] MEDS: FUROSEMIDE 40 MG/4 ML VIAL IV SCH (09:32)
[2022-06-06] MEDS: AMIODARONE 200 MG TAB PO SCH ×2 (09:32→16:21)
[2022-06-06] MEDS: ASPIRIN 81 MG ECTAB PO SCH (09:32)
[2022-06-06] MEDS: CALCIUM CARBONATE 1250MG TAB PO SCH ×2 (09:32→16:21)
[2022-06-06] MEDS: POTASSIUM CHLORIDE 10 MEQ TABCR PO SCH (09:33)
[2022-06-06] MEDS: METOPROLOL SUCC 25MG EXT REL TAB PO SCH (09:33)
[2022-06-06] MEDS: PANTOprazole 40 MG TAB PO SCH ×2 (09:33→20:41)
[2022-06-06] MEDS: HEPARIN SOD 5,000 UNIT/0.5 ML VIAL SQ SCH ×2 (09:41→20:41)
--- NOTE | 2022-06-06 12:15 | Electrocardiogram Report ---
Test Reason : Blood Pressure : / mmHG Vent. Rate : 075 BPM Atrial Rate : 076 BPM P-R Int : 000 ms QRS Dur : 104 ms QT Int : 428 ms P-R-T Axes : 000 -26 119 degrees QTc Int : 477 ms Sinus rhythm with 1st degree AV block Nonspecific ST abnormality Abnormal ECG Confirmed by Delgado Ramirez ([id number]) on 06/06/2022 12:15:01 PM Referred By: REFERRED SELF Confirmed By:Cj Ramirez
[2022-06-06] MEDS: ATORVASTATIN 40 MG TAB PO SCH (20:42)
[2022-06-06] MEDS: TERAZOSIN HCL 1 MG CAP PO SCH (20:43)
[2022-06-07] MEDS: AMPICILLIN 2,000 MG in SODIUM CHLOR 0.9% AD-VAN 100 ML IV SCH ×4 (04:43→21:08)
--- NOTE | 2022-06-07 07:30 | Hospitalist Progress Note ---
Date of Service June 06, 2022 Assessment & Plan (1) SOB (shortness of breath): Plan: Acute diastolic heart failure Demand ischemia in setting of COVID19 and acute decompensated CHF --CTA:No evidence of pulmonary embolism. Postprocedural changes in this patient status post recent TAVR explant surgery with anterior mediastinal stranding and a tiny amount of gas. Trace bilateral pleural effusions with atelectasis noted. --ECHO obtained Sinus rhythm in 70s present during echo study. Mild concentric LVH. Abnormal septal motion consistent with postoperative state. LV wall motion is otherwise normal. LV systolic function is normal. LVEF 55 to 60%. Diastolic dysfunction grade 2. LA is moderately dilated. There is a bioprosthetic valve in the aortic position. The gradient is normal for this prosthetic aortic valve. There is no significant aortic regurg. --Last ECHO:05/25/22: Left ventricle is normal in size. Left ventricle systolic function is normal. EF~ 65%. Right ventricle is normal in size. Right ventricle systolic function is normal. There is significant MAC with peak and mean transmitral gradient 9 and 6 mmHg respectively. 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 There is no aortic valve regurgitation. The peak gradient is 13 mmHg, the mean gradient is 6 mmHg and dimensionless valve index is 0.71. -- Troponin trending down -- IV Lasix today (06/06) plan to switch to p.o. 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 S/P TAVR (2020) Continue current medications, as above Aspirin initially on hold due to anemia, concern for heme positive stool, now ASA resumed Monitor COVID-19 Infection Vaccinated State Saturating well on room air Procalcitonin 0.08 CRP 4.14 CTA as above Given the comorbidities and possible risk for progression, started on Remdesivir , will continue If patient develops persistent, Hypoxia, will need Dexamethasone initiated 06/02 symptoms improving as per patient will check O2 sats on room air, if <93%, may initiate Decadron LFTs, Renal function OK Bacteremia: 1/2 blood Cx growing positive cocci in chains- Enterococci- sensitivities pending repeat BC: pending ECHO: noted Unasyn IV -> switched to ampicillin, as below, per ID recs ID consulted - Recommend checking CT abd/pelvis with oral contrast to look for potential abdominal source, if negative then recommend 2 weeks of IV antibiotics. - Recommend Stopping Unasyn IV and switching to Ampicillin 2g q6 IV for a total of 2 weeks from first negative blood culture on 06/02/2022. - Recommend CBC and CMP every week CT abd. pelvis obtained IMPRESSION: 1. Bowel gas pattern within normal limits without evidence for mucosal thickening or edematous change. 2. Small bilateral pleural effusions and bibasilar atelectasis. 3. No other evidence for acute intra-abdominal or pelvic abnormality on these limited noncontrast images. 4. Additional nonacute findings are delineated above. H/O paroxysmal atrial fibrillation Currently in sinus Had surgical left atrial appendage clip pain Continue amiodarone, Metoprolol, amiodarone increased to BID Off anticoagulation due to history of GI bleed, asa resumed Hypertension BP stable Continue home meds Hyperlipidemia on statin Dark stools + FOBT H/O Iron deficiency anemia Aspirin held initially, now resumed On Protonix Monitor H&H and transfuse as needed GI consulted No plan for endoscopy as per GI currently Iron 15- IV and PO Iron Hg remains at 8 continue Protonix 40mg BID cont. to monitor GERD on PPI Hyperglycemia Can note rule out DM II HbA1C: 5.6 : Unlikely inaccurate given Anemia/GI bleed Monitor BGs DVT Px: SCDs on;ly initially (Re possible GI bleed), started heparin subq, cont. to monitor Code Status Full code Admission and Anticipated Discharge Date Admission Date: June 01, 2022 Subjective Pt seen in follow-up of acute on chronic heart failure, history of TAVR, positive COVID 19 ID consult IV Lasix again today, plan to DC on torsemide Back to sinus rhythm (amio increased to BID) Currently laying in bed, in no acute distress Denies fevers, chills, chest pain, shortness of breath, palpitations. Denies significant cough. States that he feels better. Eager to be discharged - will place US guided line for IV abx, monitor fluid status overnight Review of Systems Review of Systems: All systems reviewed & are unremarkable except as noted in Subjective Physical Exam Physical Exam: General- oriented x 3, not in distress, speaks in sentences with no effort or accessory muscle use Eyes- PERRL, EOMI, anicteric Neck- no JVD Lungs- no crackles, good air entry BL Heart- normal rate, regular rhythm; no murmurs Abdomen- normal bowel sounds, nondistended, soft, nontender Extremities- +1-2 LE edema, no calf tenderness Neuro- alert, oriented x 3; speech fluent, moves extremities Skin- warm & dry Results & Data Results & Data ([facility]) Vital Signs (Past 12 Hours) Vital Signs Temp Pulse Pulse Resp BP Pulse Ox 06/06/22 23:05 72 06/06/22 22:07 36.8 C 72 17 118/66 94
[2022-06-07] MEDS: CALCIUM CARBONATE 1250MG TAB PO SCH ×2 (08:11→16:17)
[2022-06-07] MEDS: PANTOprazole 40 MG TAB PO SCH ×2 (08:11→20:41)
[2022-06-07] MEDS: METOPROLOL SUCC 25MG EXT REL TAB PO SCH (08:11)
[2022-06-07] MEDS: AMIODARONE 200 MG TAB PO SCH ×2 (08:12→16:17)
[2022-06-07] MEDS: POTASSIUM CHLORIDE 10 MEQ TABCR PO SCH (08:12)
[2022-06-07] MEDS: ASPIRIN 81 MG ECTAB PO SCH (08:12)
[2022-06-07] MEDS: FERROUS SULFATE 325 MG TAB PO SCH (08:12)
[2022-06-07] MEDS: FUROSEMIDE 40 MG/4 ML VIAL IV SCH ×2 (08:13→10:16)
[2022-06-07] MEDS: HEPARIN SOD 5,000 UNIT/0.5 ML VIAL SQ SCH ×2 (08:15→20:42)
--- NOTE | 2022-06-07 08:23 | Hospitalist Progress Note ---
Date of Service June 07, 2022 Assessment & Plan (1) SOB (shortness of breath): Plan: Acute diastolic heart failure Demand ischemia in setting of COVID19 and acute decompensated CHF --CTA:No evidence of pulmonary embolism. Postprocedural changes in this patient status post recent TAVR explant surgery with anterior mediastinal stranding and a tiny amount of gas. Trace bilateral pleural effusions with atelectasis noted. --ECHO obtained Sinus rhythm in 70s present during echo study. Mild concentric LVH. Abnormal septal motion consistent with postoperative state. LV wall motion is otherwise normal. LV systolic function is normal. LVEF 55 to 60%. Diastolic dysfunction grade 2. LA is moderately dilated. There is a bioprosthetic valve in the aortic position. The gradient is normal for this prosthetic aortic valve. There is no significant aortic regurg. --Last ECHO:05/25/22: Left ventricle is normal in size. Left ventricle systolic function is normal. EF~ 65%. Right ventricle is normal in size. Right ventricle systolic function is normal. There is significant MAC with peak and mean transmitral gradient 9 and 6 mmHg respectively. 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 There is no aortic valve regurgitation. The peak gradient is 13 mmHg, the mean gradient is 6 mmHg and dimensionless valve index is 0.71. -- Troponin trending down -- IV Lasix 40 daily, plan to switch to p.o. 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) H/O S/P TAVR (2020) Continue current medications, as above Aspirin initially on hold due to anemia, concern for heme positive stool, now ASA resumed Monitor COVID-19 Infection Vaccinated State Saturating well on room air Procalcitonin 0.08 CRP 4.14 CTA as above Given the comorbidities and possible risk for progression, started on Remdesivir ,finished course If patient develops persistent, Hypoxia, will need Dexamethasone initiated /6 symptoms improving as per patient will check O2 sats on room air, if <93%, may initiate Decadron LFTs, Renal function OK Bacteremia: 1/2 blood Cx growing positive cocci in chains- Enterococci- sensitivities pending repeat BC: pending ECHO: noted Unasyn IV -> switched to ampicillin, as below, per ID recs ID consulted - Recommend checking CT abd/pelvis with oral contrast to look for potential abdominal source, if negative then recommend 2 weeks of IV antibiotics. - Recommend Stopping Unasyn IV and switching to Ampicillin 2g q6 IV for a total of 2 weeks from first negative blood culture on 06/02/2022. - Recommend CBC and CMP every week CT abd. pelvis obtained IMPRESSION: 1. Bowel gas pattern within normal limits without evidence for mucosal thickening or edematous change. 2. Small bilateral pleural effusions and bibasilar atelectasis. 3. No other evidence for acute intra-abdominal or pelvic abnormality on these limited noncontrast images. 4. Additional nonacute findings are delineated above. US guided line ordered for IV abx H/O paroxysmal atrial fibrillation Currently in sinus Had surgical left atrial appendage clip pain Continue amiodarone, Metoprolol, amiodarone increased to BID Off anticoagulation due to history of GI bleed, asa resumed Hypertension BP stable Continue home meds Hyperlipidemia on statin Dark stools + FOBT H/O Iron deficiency anemia Aspirin held initially, now resumed On Protonix Monitor H&H and transfuse as needed GI consulted No plan for endoscopy as per GI currently Iron 15- IV and PO Iron Hg remains at 8 continue Protonix 40mg BID cont. to monitor GERD on PPI Hyperglycemia Can note rule out DM II HbA1C: 5.6 : Unlikely inaccurate given Anemia/GI bleed Monitor BGs DVT Px: SCDs on;ly initially (Re possible GI bleed), started heparin subq, cont. to monitor Code Status Full code Admission and Anticipated Discharge Date Admission Date: June 01, 2022 Subjective Pt seen in follow-up of acute on chronic heart failure, history of TAVR, positive COVID 19 ID consult IV Lasix while inpt, plan to DC on torsemide amio increased to BID Currently sitting up in chair, in no acute distress Denies fevers, chills, chest pain, shortness of breath, palpitations. Denies significant cough. States that he feels better. Eager to be discharged - US guided line for IV abx placed Review of Systems Review of Systems: All systems reviewed & are unremarkable except as noted in Subjective Physical Exam Physical Exam: General- oriented x 3, not in distress, speaks in sentences with no effort or accessory muscle use Eyes- PERRL, EOMI, anicteric Neck- no JVD Lungs- no crackles, good air entry BL Heart- normal rate, regular rhythm; no murmurs Abdomen- normal bowel sounds, nondistended, soft, nontender Extremities- +1-2 LE edema, no calf tenderness Neuro- alert, oriented x 3; speech fluent, moves extremities Skin- warm & dry Results & Data Results & Data ([facility]) Vital Signs (Past 12 Hours) Vital Signs Temp Pulse Pulse Pulse Resp BP Pulse Ox 06/07/22 08:10 88 116/76 06/07/22 04:48 36.5 C 83 19 97/61 L 92 06/06/22 23:05 72 06/06/22 22:07 36.8 C 72 17 118/66 94 Medications Administered Current Inpatient Medications Acetaminophen (Acetaminophen 325 Mg Tab) 650 mg PO Q4H PRN PRN Reason: Pain Stop: 07/01/22 04:10 Amiodarone HCl (Amiodarone 200 Mg Tab) 200 mg PO BIDM [place] Stop: 07/05/22 16:59 Last Admin: 06/07/22 08:12 Dose: 200 mg Documented by: Aspirin (Aspirin 81 Mg Ectab) 81 mg PO QAM [facility] Stop: 07/04/22 10:44 Last Admin: 06/07/22 08:12 Dose: 81 mg Documented by: Atorvastatin Calcium (Atorvastatin 40 Mg Tab) 40 mg PO HS [facility] Stop: 07/01/22 20:59 Last Admin: 06/06/22 20:42 Dose: 40 mg Documented by: Calcium Carbonate (Calcium Carbonate 1250mg Tab) 1,250 mg PO BIDM [place] Stop: 07/02/22 16:59 Last Admin: 06/07/22 08:11 Dose: 1,250 mg Documented by: Ferrous Sulfate (Ferrous Sulfate 325 Mg Tab) 325 mg PO DAILY [place] Stop: 07/01/22 08:59 Last Admin: 06/07/22 08:12 Dose: 325 mg Documented by: Furosemide (Furosemide 40 Mg/4 Ml Vial) 40 mg IV DAILY [facility] Stop: 07/05/22 14:59 Last Admin: 06/07/22 08:13 Dose: 40 mg Documented by: Heparin Sodium (Porcine) (Heparin Sod 5,000 Unit/0.5 Ml Vial) 5,000 units SQ Q12 [place] Stop: 07/03/22 20:59 Last Admin: 06/07/22 08:15 Dose: 5,000 units Documented by: Promethazine HCl 12.5 mg/ (Sodium Chloride) 50.5 mls @ 202 mls/hr IV Q6H PRN PRN Reason: Nausea And Vomiting Stop: 07/01/22 04:10 Ampicillin Sodium 2,000 mg/ (Sodium Chloride) 100 mls @ 200 mls/hr IV Q6H [place] Stop: 06/19/22 21:59 Last Infusion: 06/07/22 05:46 Dose: Infused Documented by: Levalbuterol HCl (Levalbuterol Tartrate 15 Gm Hfa.Aer.Ad) 2 puffs INH Q4R PRN PRN Reason: sob/wheeze Stop: 07/01/22 04:10 Melatonin (Melatonin 3 Mg Tab) 3 mg PO HS PRN PRN Reason: Sleep Stop: 07/01/22 20:36 Last Admin: 06/01/22 21:14 Dose: 3 mg Documented by: Metoprolol Succinate (Metoprolol Succ 25mg Ext Rel Tab) 25 mg PO DAILY [place] Stop: 07/01/22 08:59 Last Admin: 06/07/22 08:11 Dose: 25 mg Documented by: Nitroglycerin (Nitroglycerin Sl 0.4 Mg/Tab Tab) 0.4 mg SL UD PRN PRN Reason: Chest Pain Stop: 07/01/22 04:10 Pantoprazole Sodium (Pantoprazole 40 Mg Tab) 40 mg PO BID [place] Stop: 07/05/22 20:59 Last Admin: 06/07/22 08:11 Dose: 40 mg Documented by: Polyethylene Glycol (Polyethylene (Miralax) 17 Gm Pack) 17 gm PO QAM PRN PRN Reason: CONSTIPATION Stop: 07/01/22 15:19 Potassium Chloride (Potassium Chloride 10 Meq Tabcr) 10 meq PO DAILY [place] Stop: 07/05/22 08:59 Last Admin: 06/07/22 08:12 Dose: 10 meq Documented by: Terazosin HCl (Terazosin Hcl 1 Mg Cap) 2 mg PO HS [place] Stop: 07/01/22 20:59 Last Admin: 06/06/22 20:43 Dose: Not Given Documented by: Torsemide (Torsemide 10 Mg Tab) 20 mg PO QAM [place] Stop: 07/05/22 08:59 Last Admin: 06/05/22 08:59 Dose: 20 mg Documented by: Tramadol HCl (Tramadol Hcl 50 Mg Tablet) 25 mg PO Q4H PRN PRN Reason: Pain Stop: 07/01/22 04:10
--- NOTE | 2022-06-07 10:19 | Cardiology Progress Note ---
Date of Service June 07, 2022 Assessment & Plan (1) Acute on chronic heart failure with preserved ejection fraction (HFpEF): (2) Bacteremia due to Enterococcus: (3) COVID-19: (4) S/P AVR (aortic valve replacement): (5) Anemia: (6) CAD (coronary artery disease): Plan: Continue furosemide 40 mg IV daily. Consider additional dose of Lasix this afternoon pending review of a.m. labs. Transition back to oral torsemide at discharge. Follow daily weight, fluid balance, electrolytes, and GFR. Continue amiodarone 200 mg twice daily for 10 days then reduce dose to 200 mg daily. Patient is status post left atrial appendage clip. Anticoagulation not prescribed after recent cardiac surgery due to anemia and history of gastrointestinal bleeding. Infectious disease input appreciated. Antibiotic recommendations include IV ampicillin 2 g every 6 hours IV for a total of 2 weeks after first negative blood culture dated 06/02/2022. Repeat CBC and CMP weekly. Admission and Anticipated Discharge Date Admission Date: June 01, 2022 Subjective Patient seen and examined at the bedside. Lower extremity edema unchanged. A.m. labs pending. Denies chest pain or unusual shortness of breath. No orthopnea, PND, or palpitations. Telemetry reveals sinus rhythm with first- degree AV block. Anxious for discharge. Offers no new concerns/complaints. Review of Systems Review of Systems: All systems reviewed & are unremarkable except as noted in Subjective Physical Exam Constitutional: + ill appearing Respiratory: no respiratory distress and no labored breathing Auscultation: + diminished lung sounds (Bases bilateral); no rales, no rhonchi and no wheezes Cardiovascular: Rate/Rhythm: + irregularly irregular Heart Sounds: normal S1, normal S2 and + murmur (2/6 low pitch BRUCE) Vessels: radial pulses present; no JVD and no carotid bruit Extremities: + edema (2+ pretibial edema) Gastrointestinal (Abdomen): Inspection/Auscultation: abdomen normal to inspection and normal bowel sounds; abdomen not distended Percussion/Palpation: abdomen soft; abdomen nontender, no guarding and abdomen not rigid Neurologic: CN's II-XI intact bilaterally and moves all extremities; no focal motor deficits Psychiatric: A+Ox3, euthymic affect Results & Data ([facility]) Vital Signs (Past 12 Hours) Vital Signs Temp Pulse Pulse Pulse Resp BP Pulse Ox 06/07/22 08:10 88 116/76 06/07/22 04:48 36.5 C 83 19 97/61 L 92 06/06/22 23:05 72
[2022-06-07 11:52] LABS: BUN Creatinine Ratio 10.5 (10-20); Calcium 7.6 mg/dl (8.5-10.1); Creatinine Clr Calc Pharmacy 43.9 ml/min; Est GFR (African American) 47.7 ml/min; Est GFR (Non-African American) 41.1 ml/min; Magnesium 2.2 mg/dl (1.7-2.4); Phosphorus 2.3 mg/dl (2.5-4.9); Potassium 3.4 mmol/L (3.5-5.1)
[2022-06-07] MEDS: TERAZOSIN HCL 1 MG CAP PO SCH (20:41)
[2022-06-07] MEDS: ATORVASTATIN 40 MG TAB PO SCH (20:42)
[2022-06-08] MEDS: AMPICILLIN 2,000 MG in SODIUM CHLOR 0.9% AD-VAN 100 ML IV SCH ×2 (04:13→09:02)
--- NOTE | 2022-06-08 07:44 | Hospitalist Progress Note ---
Date of Service June 08, 2022 Assessment & Plan (1) SOB (shortness of breath): Plan: Acute diastolic heart failure Demand ischemia in setting of COVID19 and acute decompensated CHF --CTA:No evidence of pulmonary embolism. Postprocedural changes in this patient status post recent TAVR explant surgery with anterior mediastinal stranding and a tiny amount of gas. Trace bilateral pleural effusions with atelectasis noted. --ECHO obtained Sinus rhythm in 70s present during echo study. Mild concentric LVH. Abnormal septal motion consistent with postoperative state. LV wall motion is otherwise normal. LV systolic function is normal. LVEF 55 to 60%. Diastolic dysfunction grade 2. LA is moderately dilated. There is a bioprosthetic valve in the aortic position. The gradient is normal for this prosthetic aortic valve. There is no significant aortic regurg. --Last ECHO:05/25/22: Left ventricle is normal in size. Left ventricle systolic function is normal. EF~ 65%. Right ventricle is normal in size. Right ventricle systolic function is normal. There is significant MAC with peak and mean transmitral gradient 9 and 6 mmHg respectively. 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 There is no aortic valve regurgitation. The peak gradient is 13 mmHg, the mean gradient is 6 mmHg and dimensionless valve index is 0.71. -- Troponin trending down -- IV Lasix while inpt plan to switch to p.o. 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) Continue current medications, as above Aspirin initially on hold due to anemia, concern for heme positive stool, now ASA resumed Monitor COVID-19 Infection Vaccinated State Saturating well on room air Procalcitonin 0.08 CRP 4.14 CTA as above Given the comorbidities and possible risk for progression, started on Remdesivir ,finished course If patient develops persistent, Hypoxia, will need Dexamethasone initiated /6 symptoms improving as per patient will check O2 sats on room air, if <93%, may initiate Decadron LFTs, Renal function OK Bacteremia: 1/2 blood Cx growing positive cocci in chains- Enterococci- sensitivities pending repeat BC: pending ECHO: noted Unasyn IV -> switched to ampicillin, as below, per ID recs ID consulted - Recommend checking CT abd/pelvis with oral contrast to look for potential abdominal source, if negative then recommend 2 weeks of IV antibiotics. - Recommend Stopping Unasyn IV and switching to Ampicillin 2g q6 IV for a total of 2 weeks from first negative blood culture on 06/02/2022. - Recommend CBC and CMP every week CT abd. pelvis obtained IMPRESSION: 1. Bowel gas pattern within normal limits without evidence for mucosal thickening or edematous change. 2. Small bilateral pleural effusions and bibasilar atelectasis. 3. No other evidence for acute intra-abdominal or pelvic abnormality on these limited noncontrast images. 4. Additional nonacute findings are delineated above. US guided line for IV abx placed H/O paroxysmal atrial fibrillation Currently in sinus Had surgical left atrial appendage clip pain Continue amiodarone, Metoprolol, amiodarone increased to BID Off anticoagulation due to history of GI bleed, asa resumed Hypertension BP stable Continue home meds Hyperlipidemia on statin Dark stools + FOBT H/O Iron deficiency anemia Aspirin held initially, now resumed On Protonix Monitor H&H and transfuse as needed GI consulted No plan for endoscopy as per GI currently Iron 15- IV and PO Iron Hg remains at 8 continue Protonix 40mg BID cont. to monitor GERD on PPI Hyperglycemia Can note rule out DM II HbA1C: 5.6 : Unlikely inaccurate given Anemia/GI bleed Monitor BGs DVT Px: SCDs only initially (Re possible GI bleed), started heparin subq, cont. to monitor Code Status Full code Admission and Anticipated Discharge Date Admission Date: June 01, 2022 Subjective Pt seen in follow-up of acute on chronic heart failure, history of TAVR, positive COVID 19 ID consult IV Lasix while inpt, plan to DC on torsemide amio increased to BID Currently sitting up in chair, in no acute distress Denies fevers, chills, chest pain, shortness of breath, palpitations. Denies significant cough. States that he feels better. Eager to be discharged - US guided line for IV abx placed Review of Systems Review of Systems: All systems reviewed & are unremarkable except as noted in Subjective Physical Exam Physical Exam: General- oriented x 3, not in distress, speaks in sentences with no effort or accessory muscle use Eyes- PERRL, EOMI, anicteric Neck- no JVD Lungs- no crackles, good air entry BL Heart- normal rate, regular rhythm; no murmurs Abdomen- normal bowel sounds, nondistended, soft, nontender Extremities- +1-2 LE edema, no calf tenderness Neuro- alert, oriented x 3; speech fluent, moves extremities Skin- warm & dry Results & Data Results & Data ([facility]) Vital Signs (Past 12 Hours) Vital Signs Temp Pulse Pulse Resp BP Pulse Ox 06/08/22 07:16 36.8 C 73 18 98/63 L 96 06/08/22 03:21 36.5 C 83 18 121/70 94 06/07/22 22:58 36.9 C 72 18 119/73 95 06/07/22 22:20 69 Laboratory Results 06/08/22 06/07/22 Range/Units 08:13 10:07 Sodium 134 L 135 L (136-145) mmol/L Potassium 3.7 3.4 L (3.5-5.1) mmol/L Chloride 99 99 (98-107) mmol/L Carbon Dioxide 26 30 (21-32) mmol/L Anion Gap 9 6 (3-11) BUN 16 16 (6-23) mg/dl Creatinine 1.52 H 1.53 H (0.6-1.4) mg/dl Est Cr Clr Drug Dosing 43.9 43.9 ml/min Est GFR ( Amer) 48.1 47.7 ml/min Est GFR (Non-Af Amer) 41.5 41.1 ml/min BUN/Creatinine Ratio 10.5 10.5 (10-20) Glucose 203 H 136 H (70-99(Fasting)) mg/dl Calcium 7.9 L 7.6 L (8.5-10.1) mg/dl Phosphorus 2.4 L 2.3 L (2.5-4.9) mg/dl Magnesium 2.1 2.2 (1.7-2.4) mg/dl Medications Administered Current Inpatient Medications Acetaminophen (Acetaminophen 325 Mg Tab) 650 mg PO Q4H PRN PRN Reason: Pain Stop: 07/01/22 04:10 Amiodarone HCl (Amiodarone 200 Mg Tab) 200 mg PO BIDM [place] Stop: 07/05/22 16:59 Last Admin: 06/07/22 16:17 Dose: 200 mg Documented by: Aspirin (Aspirin 81 Mg Ectab) 81 mg PO QAM [facility] Stop: 07/04/22 10:44 Last Admin: 06/07/22 08:12 Dose: 81 mg Documented by: Atorvastatin Calcium (Atorvastatin 40 Mg Tab) 40 mg PO HS [facility] Stop: 07/01/22 20:59 Last Admin: 06/07/22 20:42 Dose: 40 mg Documented by: Calcium Carbonate (Calcium Carbonate 1250mg Tab) 1,250 mg PO BIDM [facility] Stop: 07/02/22 16:59 Last Admin: 06/07/22 16:17 Dose: 1,250 mg Documented by: Ferrous Sulfate (Ferrous Sulfate 325 Mg Tab) 325 mg PO DAILY [facility] Stop: 07/01/22 08:59 Last Admin: 06/07/22 08:12 Dose: 325 mg Documented by: Furosemide (Furosemide 40 Mg/4 Ml Vial) 40 mg IV DAILY [facility] Stop: 07/05/22 14:59 Last Admin: 06/07/22 10:16 Dose: 40 mg Documented by: Heparin Sodium (Porcine) (Heparin Sod 5,000 Unit/0.5 Ml Vial) 5,000 units SQ Q12 [place] Stop: 07/03/22 20:59 Last Admin: 06/07/22 20:42 Dose: 5,000 units Documented by: Promethazine HCl 12.5 mg/ (Sodium Chloride) 50.5 mls @ 202 mls/hr IV Q6H PRN PRN Reason: Nausea And Vomiting Stop: 07/01/22 04:10 Ampicillin Sodium 2,000 mg/ (Sodium Chloride) 100 mls @ 200 mls/hr IV Q6H [facility] Stop: 06/19/22 21:59 Last Infusion: 06/08/22 04:51 Dose: Infused Documented by: Levalbuterol HCl (Levalbuterol Tartrate 15 Gm Hfa.Aer.Ad) 2 puffs INH Q4R PRN PRN Reason: sob/wheeze Stop: 07/01/22 04:10 Melatonin (Melatonin 3 Mg Tab) 3 mg PO HS PRN PRN Reason: Sleep Stop: 07/01/22 20:36 Last Admin: 06/01/22 21:14 Dose: 3 mg Documented by: Metoprolol Succinate (Metoprolol Succ 25mg Ext Rel Tab) 25 mg PO DAILY [place] Stop: 07/01/22 08:59 Last Admin: 06/07/22 08:11 Dose: 25 mg Documented by: Nitroglycerin (Nitroglycerin Sl 0.4 Mg/Tab Tab) 0.4 mg SL UD PRN PRN Reason: Chest Pain Stop: 07/01/22 04:10 Pantoprazole Sodium (Pantoprazole 40 Mg Tab) 40 mg PO BID [place] Stop: 07/05/22 20:59 Last Admin: 06/07/22 20:41 Dose: 40 mg Documented by: Polyethylene Glycol (Polyethylene (Miralax) 17 Gm Pack) 17 gm PO QAM PRN PRN Reason: CONSTIPATION Stop: 07/01/22 15:19 Potassium Chloride (Potassium Chloride 10 Meq Tabcr) 10 meq PO DAILY [place] Stop: 07/05/22 08:59 Last Admin: 06/07/22 08:12 Dose: 10 meq Documented by: Terazosin HCl (Terazosin Hcl 1 Mg Cap) 2 mg PO HS [place] Stop: 07/01/22 20:59 Last Admin: 06/07/22 20:41 Dose: 2 mg Documented by: Torsemide (Torsemide 10 Mg Tab) 20 mg PO QAM [place] Stop: 07/05/22 08:59 Last Admin: 06/05/22 08:59 Dose: 20 mg Documented by: Tramadol HCl (Tramadol Hcl 50 Mg Tablet) 25 mg PO Q4H PRN PRN Reason: Pain Stop: 07/01/22 04:10
[2022-06-08 08:52] LABS: BUN Creatinine Ratio 10.5 (10-20); Calcium 7.9 mg/dl (8.5-10.1); Creatinine Clr Calc Pharmacy 43.9 ml/min; Est GFR (African American) 48.1 ml/min; Est GFR (Non-African American) 41.5 ml/min; Magnesium 2.1 mg/dl (1.7-2.4); Phosphorus 2.4 mg/dl (2.5-4.9); Potassium 3.7 mmol/L (3.5-5.1)
[2022-06-08] MEDS: CALCIUM CARBONATE 1250MG TAB PO SCH (08:58)
[2022-06-08] MEDS: AMIODARONE 200 MG TAB PO SCH (08:58)
[2022-06-08] MEDS: PANTOprazole 40 MG TAB PO SCH (08:59)
[2022-06-08] MEDS: ASPIRIN 81 MG ECTAB PO SCH (08:59)
[2022-06-08] MEDS: METOPROLOL SUCC 25MG EXT REL TAB PO SCH (09:00)
[2022-06-08] MEDS: HEPARIN SOD 5,000 UNIT/0.5 ML VIAL SQ SCH (09:00)
[2022-06-08] MEDS: POTASSIUM CHLORIDE 10 MEQ TABCR PO SCH (09:00)
[2022-06-08] MEDS ORDERED: ADVANCED PROBIOTIC 1250 MG CAPSULE PO SCH (09:00)
[2022-06-08] MEDS: FUROSEMIDE 40 MG/4 ML VIAL IV SCH (09:01)
[2022-06-08] MEDS: FERROUS SULFATE 325 MG TAB PO SCH (09:02)
--- NOTE | 2022-06-08 10:53 | Discharge Summary ---
Date of Service June 08, 2022 Admission HPI Per Admitting Provider History obtained from patient and records. 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 2 weeks ago, patient underwent elective TAVR explant surgery and CABG for paravalvular leak following TAVR surgery for severe (2020) at [place], [place]. Patient discharged home after 1 week. Noise retention, weight gain, bilateral leg swelling the last week as per patient. Chronic dark stools without abdominal pain. Few days ago, patient noted cough symptoms productive of clear sputum, achiness, increased fatigue and left-sided chest pain. Patient not sure about recent COVID-19 contacts given recent confinement. Has completed COVID-19 vaccination. Patient compliant with home medications. Amiodarone recently added to patient's home regimen. Patient currently off Coumadin for reasons unclear to patient. Patient brought to ER for evaluation. Medical History as above Surgical History : TAVR x2, CABG, knee surgeries Family History : No heart disease, no DM Personal/Social history : Past tobacco abuse, no EtOH intake, retired toolroom machinist Admission Exam Per Admitting Provider GENERAL: Comfortable, pleasant, obese, no respiratory distress SKIN: Pallor,, warm HEENT: Pale palpebral conjunctivae, no ptosis, dry buccal mucosa NECK : Supple, short neck, no tenderness CHEST : coaptated sternal surgical incision, decreased breath sounds, occasional expiratory wheezes, minimal central chest wall tenderness HEART : RRR, systolic murmur over second right intercostal space and sternal border ABDOMEN: Some distention, nontender RECTAL : Intact sphincter, dark stool (FOBT positive ) EXTREMITIES : Minimal LE swelling, no LE tenderness, no other conspicuous deformities noted NEUROLOGIC : Coherent, no facial asymmetry, slightly hard of hearing, no other gross focality Principal Diagnosis Acute on chronic heart failure Aortic stenosis status post TAVR, recent surgery Enterococcus bacteremia Anemia Discharge Exam General- oriented x 3, not in distress, speaks in sentences with no effort or accessory muscle use Eyes- PERRL, EOMI, anicteric Neck- no JVD Lungs- no crackles, good air entry BL Heart- normal rate, regular rhythm; no murmurs Abdomen- normal bowel sounds, nondistended, soft, nontender Extremities- +1-2 LE edema, no calf tenderness Neuro- alert, oriented x 3; speech fluent, moves extremities Skin- warm & dry Discharge Data Allergies Allergy/AdvReac Type Severity Reaction Status Date / Time Iodinated Contrast Media Allergy Severe SHORT OF Verified 05/31/22 22:05 BREATH, FELT LIKE "ON FIRE". Consultations 06/01/22 01:04 ED Decision to Admit Stat 06/01/22 02:33 Consult Health Information Management Routine 06/01/22 04:11 Consult Cardiology Routine Consult Gastroenterology Routine 06/01/22 05:47 Consult Health Information Management Routine 06/03/22 13:14 Consult Infectious Diseases Routine Ordered Studies 05/31/22 21:27 CT angio chest PE protocol Urgent FINDINGS: Lungs and pleura: Atelectasis versus scarring is seen in the dependent portions of the lungs. Trace bilateral pleural effusions are noted. Bronchial wall thickening is noted. Heart and pericardium: Heart size is normal. No pericardial effusion. Vessels: No evidence of pulmonary embolism. Mediastinum and rick: Stranding and a tiny focus of anterior mediastinal gas are seen. Chest wall and lower neck: Unremarkable. Abdomen: A moderate hiatal hernia is seen. Bones: Degenerative changes in the thoracic spine. Median sternotomy is noted. IMPRESSION: 1. No evidence of pulmonary embolism. 2. Postprocedural changes in this patient status post recent TAVR explant surgery with anterior mediastinal stranding and a tiny amount of gas. 3. Trace bilateral pleural effusions with atelectasis noted. 06/05/22 15:25 CT abd pelvis oral con only Urgent FINDINGS: Lung base: There are small bilateral pleural effusions the patient is status post previous cardiothoracic surgery with coronary artery calcification. The heart is mildly enlarged. Abdominal cavity: There is no evidence for abdominal mass, adenopathy or ascites. Liver: The liver is homogeneous in attenuation on these limited noncontrast images.. Spleen: The spleen is homogeneous in attenuation on these limited noncontrast images. Pancreas: The pancreas is homogeneous in attenuation on these limited noncontrast images. Gall Bladder: The gallbladder is well distended with no evidence for cholelithiasis, wall thickening or pericholecystic edema.. Adrenal glands: The adrenal glands are normal in size and attenuation on these limited noncontrast images. Kidneys: The kidneys are homogeneous in attenuation on these limited noncontrast images. There is no evidence for gross renal mass, calculus or hydronephrosis bilaterally. Bowel: There is a moderate size hiatal hernia. Oral contrast is present within the stomach, small bowel and colon to the level of the splenic flexure. The bowel loops are normally placed within the abdomen and pelvis without evidence for dilatation or obstruction. There is no evidence for mass lesion. The mucosal pattern of the small and large bowel is within normal limits. There are no inflammatory changes present. There is no evidence for free air. Bladder: There is mild distention of the bladder with no evidence for focal bladder wall thickening, calculus or diverticulum. There is mild diffuse thickening of bladder wall characteristic of chronic bladder outlet obstruction. : There is no evidence for pelvic mass or adenopathy. There is moderate to marked prostate enlargement. Vasculature: There is no evidence for focal aneurysmal dilatation of the abdominal aorta. Atherosclerotic calcification is present. Osseous structures: There is no acute osseous pathology. Degenerative changes are seen within the spine. IMPRESSION: 1. Bowel gas pattern within normal limits without evidence for mucosal thickening or edematous change. 2. Small bilateral pleural effusions and bibasilar atelectasis. 3. No other evidence for acute intra-abdominal or pelvic abnormality on these limited noncontrast images. 4. Additional nonacute findings are delineated above. Hospital Course (1) SOB (shortness of breath): Acute diastolic heart failure Demand ischemia in setting of COVID19 and acute decompensated CHF --CTA:No evidence of pulmonary embolism. Postprocedural changes in this patient status post recent TAVR explant surgery with anterior mediastinal stranding and a tiny amount of gas. Trace bilateral pleural effusions with atelectasis noted. --ECHO obtained Sinus rhythm in 70s present during echo study. Mild concentric LVH. Abnormal septal motion consistent with postoperative state. LV wall motion is otherwise normal. LV systolic function is normal. LVEF 55 to 60%. Diastolic dysfunction grade 2. LA is moderately dilated. There is a bioprosthetic valve in the aortic position. The gradient is normal for this prosthetic aortic valve. There is no significant aortic regurg. --Last ECHO:05/25/22: Left ventricle is normal in size. Left ventricle systolic function is normal. EF~ 65%. Right ventricle is normal in size. Right ventricle systolic function is normal. There is significant MAC with peak and mean transmitral gradient 9 and 6 mmHg respectively. 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 There is no aortic valve regurgitation. The peak gradient is 13 mmHg, the mean gradient is 6 mmHg and dimensionless valve index is 0.71. -- Troponin trending down -- IV Lasix while inpt plan to switch to p.o. 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) Continue current medications, as above Aspirin initially on hold due to anemia, concern for heme positive stool, now ASA resumed Monitor COVID-19 Infection Vaccinated State Saturating well on room air Procalcitonin 0.08 CRP 4.14 CTA as above Given the comorbidities and possible risk for progression, started on Remdesivir ,finished course If patient develops persistent, Hypoxia, will need Dexamethasone initiated 06/02 symptoms improving as per patient will check O2 sats on room air, if <93%, may initiate Decadron LFTs, Renal function OK Bacteremia: 1/ blood Cx growing positive cocci in chains- Enterococci- sensitivities pending repeat BC: pending ECHO: noted Unasyn IV -> switched to ampicillin, as below, per ID recs ID consulted - Recommend checking CT abd/pelvis with oral contrast to look for potential abdominal source, if negative then recommend 2 weeks of IV antibiotics. - Recommend Stopping Unasyn IV and switching to Ampicillin 2g q6 IV for a total of 2 weeks from first negative blood culture on 06/02/2022. - Recommend CBC and CMP every week CT abd. pelvis obtained IMPRESSION: 1. Bowel gas pattern within normal limits without evidence for mucosal thickening or edematous change. 2. Small bilateral pleural effusions and bibasilar atelectasis. 3. No other evidence for acute intra-abdominal or pelvic abnormality on these limited noncontrast images. 4. Additional nonacute findings are delineated above. US guided line for IV abx placed H/O paroxysmal atrial fibrillation Currently in sinus Had surgical left atrial appendage clip pain Continue amiodarone, Metoprolol, amiodarone increased to BID Off anticoagulation due to history of GI bleed, asa resumed Hypertension BP stable Continue home meds Hyperlipidemia on statin Dark stools + FOBT H/O Iron deficiency anemia Aspirin held initially, now resumed On Protonix Monitor H&H and transfuse as needed GI consulted No plan for endoscopy as per GI currently Iron 15- IV and PO Iron Hg remains at 8 continue Protonix 40mg BID cont. to monitor GERD on PPI Hyperglycemia Can note rule out DM II HbA1C: 5.6 : Unlikely inaccurate given Anemia/GI bleed Monitor BGs Total Time Total Time Spent Total Time Spent (In Minutes): 40 Discharge Plan Discharge Items Patient Disposition: Home - Home Health Services Reason For Visit: CHF, COVID Discharge Diagnosis: Acute on chronic heart failure Aortic stenosis status post TAVR, recent surgery Enterococcus bacteremia Anemia Activity: Per Instructions section Non-emergency contact: Primary Care Provider and [employer] Operator Call non-emergency contact if: you have any medication questions and your symptoms worsen Follow-up/Referrals: Mary Leon DO [Outside Practitioners] - 06/14/22 9:00 am Tyrell Munroe MD [Outside Practitioners] - (A message was left at Dr Munroe's office for a hospital discharge appointment. If you do not hear from the office, please call .) Diet: Heart Healthy and Low Sodium (2gm) Fluids: 1800ml (7 cups) Addtl Attending Provider Instructions: Follow-up with your primary care doctor and your level vial curvature gauger within 1 to 2 weeks. The appointment with your level vial curvature gauger was set up for you for June 14, 2022. Continue IV antibiotics, ampicillin 2 g every 6 hours, for total of 2 weeks. The end date June 16. You will need weekly blood work while on antibiotics. Recommend taking probiotics, while you are on antibiotic, to prevent stomach upset or diarrhea. Take amiodarone 200 mg twice a day for 10 days, then switch to 200 mg daily. Take torsemide (water pill) 20 mg twice a day, instead of Lasix 40 mg daily. You will need blood work, BMP, within a week to check your kidney function. Addtl [place] Provider Instructions: Call your Primary Care doctor if any of the following symptoms or problems start or get worse: * Shortness of breath or difficulty breathing * Wake up at night short of breath * Chest pain * Cough * Swelling of your hands, feet, or legs * More fatigued or tired with your normal activity * Palpitations - sudden fast heart beats WEIGHT * Weigh yourself every morning after using the bathroom. * Use the same scale. * Wear the same amount of clothing. * Write your weight down on a chart. * Call your Primary Care doctor if you gain more than 2-3 pounds in 1-2 days. MEDICATIONS * Use this discharge instruction sheet for medication instructions. * Take your medications at the time your doctor ordered. * Do not skip a dose of your medicines. * If you miss a dose of medicine, take it as soon as possible, but DO NOT DOUBLE A DOSE. * Read your medicine information when you get home. * Know all of the side effects of your medicine. If in doubt, ask your pharmacist * Call your Primary Care doctor's office if you have any side effects. * Be sure all of your doctors know what medicine and herbs you take (including cold, flu, and herbal medicine). Take the following with you to your follow-up doctor appointments: * Weight Chart * Medication List * List of questions Do not drink excessive alcohol, beer or wine. Pending Studies at Discharge: No Stand-Alone Forms: My [facility] [employer], Smoking Cessation Medications and DC Order Prescriptions: New torsemide 10 mg Tablet 20 mg PO QAM 30 Days Qty: 60 RF: 0 Advanced Probiotic 625 mg (10 billion cell) Capsule 2 cap PO DAILY Qty: 30 RF: 0 aspirin 81 mg Tablet,Delayed Release (Dr/Ec) 81 mg PO QAM Qty: 30 RF: 0 amiodarone 200 mg Tablet 200 mg PO BIDM 10 Days Qty: 20 RF: 0 Continued atorvastatin 40 mg Tablet 40 mg PO HS RF: 0 sennosides [senna] 8.6 mg Tablet 8.6 mg PO DAILY PRN (Reason: Constipation) RF: 0 potassium chloride 10 mEq Capsule, Extended Release 10 meq PO DAILY RF: 0 acetaminophen [Tylenol] 325 mg Tablet 650 mg PO Q4H PRN (Reason: Pain) RF: 0 amiodarone 200 mg Tablet 200 mg PO DIRECTED RF: 0 metoprolol succinate 50 mg Tablet Extended Release 24 Hr 50 mg PO DAILY RF: 0 aspirin 81 mg Tablet,Delayed Release (Dr/Ec) 81 mg PO DAILY RF: 0 terazosin 2 mg Capsule 2 mg PO HS RF: 0 ferrous sulfate 325 mg (65 mg iron) Tablet 325 mg PO DAILY RF: 0 polyethylene glycol 3350 [Miralax] 17 gram/dose Powder 17 g PO DAILY PRN (Reason: Constipation) RF: 0 Changed pantoprazole 40 mg Tablet,Delayed Release (Dr/Ec) 40 mg PO BID Qty: 0 RF: 0 Discontinued furosemide [Lasix] 40 mg Tablet 40 mg PO DAILY RF: 0 Discharge Orders: Discharge Order (Routine); Ordered 06/08/22 Ordered By: Duong Grullon Admission Data Admit Date/Time: 06/01/22 02:33 Attending Provider: Duong Grullon Admit Provider: Girma Escobar Primary Care Provider: Jake Joseph Other Providers: Girma Escobar ; Jaquan Calles ; Vj Tipton ; Gerard Duarte ; Hernandez Pandey ; Phan Rayo ; Rajiv Rios ; Antonette Rashid ; Fauzia Christianson ; Charity Beavers ; Eliseo Rosa ; Iesha Ng ; Kary Sibley ; Dm Lopez ; Arleth Zhou ; Tyler Perez ; Luis Kay ; Andrew Rankin ; Serafin Landry ; Amanda Hughes ; Shanti Kruse ; Amarilys Kat ; Melly Pierce ; Doris Bliss ; Philipp Peraza ; Satya Blanco ; Pepito Stinson ; Noel Kerns ; Gilberto Miranda I. ; Lonnie Lovell II ; Tequila Gonzales ; Rajiv Dominguez ; Matias Foster ; [facility]
== END 2022-06-08 12:24 | disposition home health service (06) | DRG 177 ==
LOC: ED 21:20 → 2E 06-01 02:33 → SUATTDRO 06-01 02:33 → 2E 06-01 03:15